=== PATIENT | male | born 1955 | race American Indian/Alaskan Native ===

== ENCOUNTER 2016-06-11 17:54 | Emergency (ER) | payer OTHER ==
--- NOTE | 2016-06-11 18:22 | Emergency Department Report ---
Chief Complaint: Extremity Problem,Nontraumatic Stated Complaint: RT ARM/ SHOULDER PAIN Time Seen by Provider: 06/11/16 18:15 - HPI History of Present Illness: PT c/o R shoulder pain since last night. PT denies any injury or trauma. PT states the pain started when he was going to bed. - ROS Review of Systems: - cp - sob + non traumatic upper ext pain + hx of smoking - Exam Vital Signs: elevated bp Physical Exam: PT looks well, non toxic. PT c/o R shoulder pain, worse with raising R arm. mild tenderness to ant shoulder. no chest wall tenderness MSE screening note: Focused history and physical exam performed. Due to findings the following was ordered: labs, ekg, xr ED Disposition for MSE Condition: Stable
[2016-06-11 19:09] LABS: Basophils % (Auto) 0.3 % (0.0-1.8); Eosinophils % (Auto) 0.4 % (0.0-4.3); Hematocrit 47.7 % (35.5-45.6); Hemoglobin 16.4 gm/dl (11.8-15.2); Mean Corpuscular HGB Conc 34 % (32-34); Mean Corpuscular Hemoglobin 31 pg (28-32); Mean Corpuscular Volume 91 fl (84-94); Platelet Count 147 K/mm3 (140-440); Red Blood Count 5.22 M/mm3 (3.65-5.03); Red Cell Distribution Width 13.3 % (13.2-15.2); White Blood Count 10.1 K/mm3 (4.5-11.0)
[2016-06-11 19:24] LABS: Alanine Aminotransferase 43 units/L (7-56); Albumin 4.4 g/dL (3.9-5); Albumin/Globulin Ratio 1.2 %; Alkaline Phosphatase 64 units/L (35-129); Anion Gap 20 mmol/L; Bilirubin,Total 0.6 mg/dL (0.1-1.2); Blood Urea Nitrogen 12 mg/dL (9-20); Calcium 9.2 mg/dL (8.4-10.2); Carbon Dioxide 25 mmol/L (22-30); Glucose 151 mg/dL (75-100); Potassium 3.7 mmol/L (3.6-5.0); Sodium 138 mmol/L (137-145); Total Protein 8.1 g/dL (6.3-8.2)
--- NOTE | 2016-06-11 20:48 | XRay Report ---
FINAL REPORT PROCEDURE: XR CHEST ROUTINE 2V TECHNIQUE: PA and lateral chest radiographs were obtained. CPT 93976 HISTORY: Hypertension COMPARISON: No prior studies are available for comparison. FINDINGS: Heart: Normal contour. Mediastinum/Vessels: Normal contour. Lungs/Pleural space: No infiltrate, effusion, or pneumothorax is seen. Bony thorax: No acute osseous abnormality. Other: IMPRESSION: No infiltrates are identified.
--- NOTE | 2016-06-11 20:50 | XRay Report ---
FINAL REPORT PROCEDURE: XR SHOULDER 2 RT TECHNIQUE: Right shoulder, three views HISTORY: pain COMPARISON: No prior studies are available for comparison. FINDINGS: There is joint space narrowing and osteophyte formation of the glenohumeral and acromioclavicular joints. No acute fracture or joint dislocation is noted. IMPRESSION: Osteoarthritis. No acute fracture is seen
[2016-06-11] MEDS ORDERED: MORPHINE IM ONE (22:36)
[2016-06-11] MEDS ORDERED: TORADOL IM ONE (22:36)
--- NOTE | 2016-06-11 22:45 | Emergency Department Report ---
HPI - General Chief Complaint: Shoulder Injury Time Seen by Provider: 06/11/16 18:15 - HPI HPI: This is a 61-year-old [place] male presents to the emergency department with complaint of right shoulder pain that has been going on since 6 PM yesterday. The pain is to the anterior and posterior portion of the right shoulder. He denies any injury at. He denies any event which she was reaching for something or had a sharp pain that would have caused his discomfort. The pain worsens when he tries to raise his right arm. He has occasional tingling in a few of the fingers of the right hand. He denies any chest pain, back pain , shortness of breath, nausea, vomiting or fever. He has not taken anything for symptoms prior to presentation. He also presents with some elevated blood pressure and does have a history of hypertension and admits to medication noncompliance. His primary care doctor is Dr. Kearns. No recent travel or sick contacts at home. He is right-hand dominant. ED Past Medical Hx - Past Medical History Previous Medical History?: Yes Hx Hypertension: Yes Hx Congestive Heart Failure: No Hx Diabetes: No Hx Asthma: No Hx COPD: No - Surgical History Past Surgical History?: Yes Additional Surgical History: UMBILICAL HERNIA REPAIR - Social History Smoking Status: Current Every Day Smoker Substance Use Type: Alcohol, Non Opiate Pain, Prescribed - Medications Home Medications: Home Medications Medication Instructions Recorded Confirmed Last Taken Type HYDROcodone/APAP 5-325 [[place] 1 each PO Q6HR PRN #10 tablet 06/11/16 Unknown Rx 5/325] Ibuprofen [Motrin 800 MG tab] 800 mg PO Q8HR PRN #20 tablet 06/11/16 Unknown Rx ED Review of Systems ROS: Stated complaint: RT ARM/ SHOULDER PAIN Other details as noted in HPI Comment: All other systems reviewed and negative Constitutional: denies: chills, fever Eyes: denies: eye pain, eye discharge, vision change ENT: denies: ear pain, throat pain Respiratory: denies: cough, shortness of breath, wheezing Cardiovascular: denies: chest pain, palpitations Gastrointestinal: denies: abdominal pain, nausea, diarrhea Genitourinary: denies: urgency, dysuria Musculoskeletal: arthralgia. denies: joint swelling Skin: denies: rash, lesions Neurological: paresthesias. denies: headache, weakness Physical Exam - Physical Exam Vital Signs: Vital Signs 06/11/16 18:15 Temperature 99.2 F Pulse Rate 103 H Respiratory 20 Rate Blood Pressure 182/120 O2 Sat by Pulse 97 Oximetry Physical Exam: GENERAL: The patient is well-developed well-nourished. HEENT: Normocephalic. Atraumatic. Extraocular motions are intact. Patient has moist mucous membranes. Pupils equal reactive to light bilaterally. NECK: Supple. Trachea is midline. CHEST/LUNGS: Clear to auscultation. There is no respiratory distress noted. HEART/CARDIOVASCULAR: Regular. There is no tachycardia. There is no gallop rub or murmur. ABDOMEN: Abdomen is soft, nontender. Patient has normal bowel sounds. There is no abdominal distention. SKIN: There is no rash. There is no edema. There is no diaphoresis. NEURO: The patient is awake, alert, and oriented. The patient is cooperative. The patient has no focal neurologic deficits. The patient has normal speech and gait. MUSCULOSKELETAL: Patient has tenderness to palpation to the right anterior and posterior shoulder but there is no deformity. Patient has limitation with right upper extremity extension and abduction to active motion but has full range of motion with passive movement. Radial pulses +2 over 4 bilaterally. Cap refill less than 2 seconds. There is no evidence of acute injury. ED Course Vital Signs 06/11/16 18:15 Temperature 99.2 F Pulse Rate 103 H Respiratory 20 Rate Blood Pressure 182/120 O2 Sat by Pulse 97 Oximetry ED Medical Decision Making - Lab Data Result diagrams: 06/11/16 18:48 06/11/16 18:48 - EKG Data -: EKG Interpreted by Me EKG shows normal: sinus rhythm, axis (right axis), intervals, QRS complexes, ST- T waves Rate: normal - EKG Data When compared to previous EKG there are: previous EKG unavailable Interpretation: normal EKG - Radiology Data Radiology results: report reviewed, image reviewed interpreted by me: Chest x-ray did not show any acute process. Heart is normal shape and size. No effusions. No pneumothorax. No signs of pneumonia seen. X-ray of the right shoulder does not show any fracture, dislocation or any acute process. - Medical Decision Making 61-year-old male presents to the emergency department with complaint of a 2 day history of right shoulder pain that occurred atraumatically. It does not involve any portion of the patient's chest. The areas that he is having discomfort are in the shoulder joint and over the muscles and tendons and ligaments that makeup the rotator cuff and the back of the shoulder. No obvious deformities. Patient is neurovascularly intact. Full range of motion with passive movement. Patient's only restriction is due to pain. X-rays of the chest and shoulder were done that did not show any acute processes. Patient will be placed in an arm sling and encouraged to follow-up with an orthopedist. He may need an MRI to look for rotator cuff injury versus tendinitis versus bursitis. No skin color changes or joint swelling. Patient was given a shot of Toradol and pain medication here. He will return to the ER with any worsening of symptoms or any acute distress. Patient presents with elevated blood pressure but has known medication noncompliance. He eventually was able to tell me that he takes metoprolol. He was given a dose of this his blood pressure came down to more reasonable level. He'll be given referrals for primary care and the orthopedist. - Differential Diagnosis tendinitis, shoulder sprain, bursitis, rotator cuff injury, fracture, dislo Critical Care Time: No Critical care attestation.: If time is entered above; I have spent that time in minutes in the direct care of this critically ill patient, excluding procedure time. ED Disposition Clinical Impression: Hypertension Right shoulder pain Qualifiers: Chronicity: acute Qualified Code(s): M25.511 - Pain in right shoulder Disposition: DISCHARGED TO HOME OR SELFCARE Is pt being admited?: No Condition: Stable Instructions: Hypertension (ED), Arthralgia (ED), Shoulder Sprain (ED) Additional Instructions: Please follow-up with a primary care doctor in the next few days to discuss your elevated blood pressure. Try to stay away from foods are high in salt and caffeinated products to help with her blood pressure. Keep a blood pressure log. I have given you a referral for a local orthopedist, Dr. Valadez, to follow up regarding your shoulder pain. You've been prescribed a medication that is sedating. Therefore this medication cannot be mixed with alcohol, or taken prior to driving, working, or being responsible for children. Prescriptions: HYDROcodone/APAP 5-325 [[place] 5/325] 1 each PO Q6HR PRN #10 tablet PRN Reason: Pain Ibuprofen [Motrin 800 MG tab] 800 mg PO Q8HR PRN #20 tablet PRN Reason: Pain Referrals: PRIMARY CARE, [Primary Care Provider] - 3-5 Days TIGRE VALADEZ MD [Staff Physician] - 3-5 Days JAMSHID LERMA MD, PHD [Staff Physician] - 3-5 Days Time of Disposition: 23:44
[2016-06-11] MEDS ORDERED: LOPRESSOR PO ONE (23:39)
[2016-06-12 01:00] VITALS: BP 169/115
== END 2016-06-12 00:58 | disposition home or self-care (01) ==
LOC: ED 17:54
DX: I10 Essential (primary) hypertension (principal); M25.511 Pain in right shoulder
CPT/HCPCS: 36415; 71020; 73030; 80053; 84484; 85025; 93005; 93010; 96372; 99284; J1885; J2270

== ENCOUNTER 2017-03-31 23:32 | Emergency (ER) | payer SELFPAY | END 2017-04-01 00:30 | disposition left against medical advice (07) | LOC: ED 23:32 | DX: R51 Headache (principal); Z53.21 Procedure and treatment not carried out due to patient leaving prior to being seen by health care provider ==

== ENCOUNTER 2017-05-15 08:27 | Inpatient (IN) | payer SELFPAY ==
--- NOTE | 2017-05-15 13:26 | Emergency Department Report ---
HPI - General Chief Complaint: Weakness Time Seen by Provider: 05/15/17 13:12 - HPI HPI: Room 2 The patient is a 8-year-old male presented with a chief complaint of right hand weakness and slurred speech. The patient was brought in by his she has noticed he has been off balance, exhibited right-sided weakness and slurred speech. The states the patient attempts to hide the symptoms from her but she has noticed he has been holding his right hand for the past 2-3 weeks. The states the patient's right face appears twisted for approximately one week. The is noticed slurred speech but is unable to give a time frame. states the patient seems off balance. When asked how his feeling the patient replies he feels "all right." The patient does admit to numbness and weakness of the right hand for approximately 1 year. The states the patient uses cocaine but she is unaware of the last time he used Location: [See above] Duration: [See above] Quality: Weakness, numbness Severity: Moderate Modifying factors: [see above] Context: [see above] Mode of transportation: [not driving] ED Past Medical Hx - Past Medical History Hx Hypertension: Yes - Surgical History Additional Surgical History: UMBILICAL HERNIA REPAIR - Family History Family history: no significant - Social History Smoking Status: Current Every Day Smoker (1/2 pack per day) Substance Use Type: Alcohol ("often" per ), Cocaine - Medications Home Medications: Home Medications Medication Instructions Recorded Confirmed Last Taken Type HYDROcodone/APAP 5-325 [[place] 1 each PO Q6HR PRN #10 tablet 06/11/16 05/15/17 Unknown Rx 5/325] Ibuprofen [Motrin 800 MG tab] 800 mg PO Q8HR PRN #20 tablet 06/11/16 05/15/17 Unknown Rx Metoprolol [Lopressor TAB] 25 mg PO BID #60 tablet 06/12/16 05/15/17 Unknown Rx ED Review of Systems ROS: Stated complaint: NEURO SYMPTOMS Other details as noted in HPI Neurological: weakness, numbness Physical Exam - Physical Exam Vital Signs: Vital Signs 05/15/17 08:54 Temperature 98.1 F Pulse Rate 68 Respiratory 16 Rate Blood Pressure 151/98 O2 Sat by Pulse 97 Oximetry Physical Exam: GENERAL: The patient is well-developed well-nourished male lying on stretcher not appearing to be in acute distress. [] HEENT: Normocephalic. Atraumatic. Extraocular motions are intact. Patient has moist mucous membranes. NECK: Supple. Trachea midline CHEST/LUNGS: Clear to auscultation. There is no respiratory distress noted. HEART/CARDIOVASCULAR: Regular. There is no tachycardia. There is no gallop rub or murmur. ABDOMEN: Abdomen is soft, nontender. Patient has normal bowel sounds. There is no abdominal distention. SKIN: There is no rash. There is no edema. There is no diaphoresis. NEURO: The patient is awake, alert, and oriented. The patient is cooperative. Cranial nerves II through XII grossly intact, no drift. states patient appears to have slight right facial droop compared to baseline. Manager Membership equal bilaterally. The patient has normal speech. NIHSS=1 MUSCULOSKELETAL: There is no evidence of acute injury. ED Course Vital Signs 05/15/17 08:54 Temperature 98.1 F Pulse Rate 68 Respiratory 16 Rate Blood Pressure 151/98 O2 Sat by Pulse 97 Oximetry ED Medical Decision Making - Lab Data Result diagrams: 05/15/17 13:22 05/15/17 13:22 Laboratory Tests 05/15/17 05/15/17 05/15/17 13:22 13:22 13:22 WBC 7.7 RBC 4.47 Hgb 14.0 Hct 40.4 MCV 90 MCH 31 MCHC 35 H RDW 14.0 Plt Count 166 Lymph % (Auto) 46.2 H Rains % (Auto) 5.4 Eos % (Auto) 3.7 Baso % (Auto) 0.3 Lymph # 3.6 Rains # 0.4 Eos # 0.3 Baso # 0.0 Seg Neutrophils % 44.4 Seg Neutrophils # 3.4 PT 12.7 INR 0.91 APTT 29.5 Thrombin Time Sodium 142 Potassium 3.5 L Chloride 101.9 Carbon Dioxide 26 Anion Gap 18 BUN 20 Creatinine 1.3 Estimated GFR > 60 BUN/Creatinine Ratio 15 Glucose 149 H Calcium 8.7 Troponin T < 0.010 05/15/17 13:22 WBC RBC Hgb Hct MCV MCH MCHC RDW Plt Count Lymph % (Auto) Rains % (Auto) Eos % (Auto) Baso % (Auto) Lymph # Rains # Eos # Baso # Seg Neutrophils % Seg Neutrophils # PT INR APTT Thrombin Time 15.9 Sodium Potassium Chloride Carbon Dioxide Anion Gap BUN Creatinine Estimated GFR BUN/Creatinine Ratio Glucose Calcium Troponin T - EKG Data -: EKG Interpreted by Me EKG shows normal: sinus rhythm Rate: normal - EKG Data When compared to previous EKG there are: changes noted Interpretation: nonspecific ST-T wave chirag (new T-wave inversions in leads 1 and aVL when compared to previous EKG dated 06/11/2016) - Radiology Data Radiology results: report reviewed (CT head), image reviewed (CT head) CT HEAD WITHOUT CONTRAST: HISTORY: Neurological deficit. TECHNIQUE: Sequential 2.5mm CT images. COMPARISON: none. FINDINGS: Cerebral Parenchyma: Mild nonspecific chronic white matter changes are identified most likely representing chronic microvascular ischemic disease. Chronic lacunar infarcts are identified in the left frontal white matter, bilateral basal ganglia, and central chip. No large area of acute ischemia is appreciated on noncontrast CT. Cerebellum: Within normal limits. Brainstem: Within normal limits. Ventricles: Normal. Sella: Normal. Extra-axial spaces: Normal. Basal Cisterns: Normal. Intracranial Hemorrhage: None. Midline Shift: None. Calvarium: Normal. Sinuses: Normal. Mastoid Air Cells: Normal. Visualized Orbits: A surgical coil or clip in the posterior left orbital cavity generates artifact. Please correlate with the patient's surgical history. IMPRESSION: No acute intracranial process is identified. Chronic white matter changes. Scattered chronic appearing lacunar infarcts as described. Assumed surgical changes in the left orbital cavity. Transcribed By: TTR Dictated By: JHOAN DIALLO JR, MD Electronically Authenticated By: JHOAN DIALLO JR, MD Signed Date/Time: 05/15/17 1407 DD/ 1405 TD/TT: 05/15/17 1407 - Differential Diagnosis CVA, TIA, Critical care attestation.: If time is entered above; I have spent that time in minutes in the direct care of this critically ill patient, excluding procedure time. ED Disposition Clinical Impression: Paresthesia of right arm, Right arm weakness, Dysarthria Disposition: OP ADMIT IP TO THIS HOSP Is pt being admited?: Yes Does the pt Need Aspirin: Yes Condition: Fair Referrals: PRIMARY CARE, [Primary Care Provider] - 3-5 Days Time of Disposition: 14:21 (hospitalist notified (Dr Emerson))
[2017-05-15 13:38] LABS: Basophils % (Auto) 0.3 % (0.0-1.8); Eosinophils # (Auto) 0.3 K/mm3 (0.0-0.4); Eosinophils % (Auto) 3.7 % (0.0-4.3); Hematocrit 40.4 % (35.5-45.6); Lymphocytes # (Auto) 3.6 K/mm3 (1.2-5.4); Lymphocytes % (Auto) 46.2 % (13.4-35.0); Mean Corpuscular HGB Conc 35 % (32-34); Mean Corpuscular Hemoglobin 31 pg (28-32); Mean Corpuscular Volume 90 fl (84-94); Monocytes # (Auto) 0.4 K/mm3 (0.0-0.8); Monocytes % (Auto) 5.4 % (0.0-7.3); Platelet Count 166 K/mm3 (140-440); Red Blood Count 4.47 M/mm3 (3.65-5.03)
[2017-05-15 13:55] LABS: INR 0.91 (0.87-1.13); Partial Thromboplastin Time 29.5 Sec. (24.2-36.6)
[2017-05-15 13:57] LABS: BUN/Creatinine Ratio 15; Blood Urea Nitrogen 20 mg/dL (9-20); Calcium 8.7 mg/dL (8.4-10.2); Hemolysis Index 7
--- NOTE | 2017-05-15 14:14 | Cat Scan Report ---
CT HEAD WITHOUT CONTRAST: HISTORY: Neurological deficit. TECHNIQUE: Sequential 2.5mm CT images. COMPARISON: none. FINDINGS: Cerebral Parenchyma: Mild nonspecific chronic white matter changes are identified most likely representing chronic microvascular ischemic disease. Chronic lacunar infarcts are identified in the left frontal white matter, bilateral basal ganglia, and central chip. No large area of acute ischemia is appreciated on noncontrast CT. Cerebellum: Within normal limits. Brainstem: Within normal limits. Ventricles: Normal. Sella: Normal. Extra-axial spaces: Normal. Basal Cisterns: Normal. Intracranial Hemorrhage: None. Midline Shift: None. Calvarium: Normal. Sinuses: Normal. Mastoid Air Cells: Normal. Visualized Orbits: A surgical coil or clip in the posterior left orbital cavity generates artifact. Please correlate with the patient's surgical history. IMPRESSION: No acute intracranial process is identified. Chronic white matter changes. Scattered chronic appearing lacunar infarcts as described. Assumed surgical changes in the left orbital cavity.
[2017-05-15] MEDS ORDERED: ASPIRIN PO ONE (14:21)
[2017-05-15 16:47] LABS: Amphetamine Screen,Urine PRESUMPTIVE NEGATIVE; Benzodiazepines Screen,Urine PRESUMPTIVE NEGATIVE; Cannabinoid Screen,Urine PRESUMPTIVE NEGATIVE; Cocaine Screen,Urine PRESUMPTIVE NEGATIVE; Methadone Screen,Urine PRESUMPTIVE NEGATIVE; Opiate Screen,Urine PRESUMPTIVE NEGATIVE
--- NOTE | 2017-05-15 21:00 | History and Physical Report ---
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 History of present illness: GARETT: 62-year-old male presented with a chief complaint of right hand weakness and slurred speech. The patient was brought in by his because she noticed he has been off balance, exhibited right-sided weakness and slurred speech. The states the patient attempts to hide the symptoms from her but she has noticed he has been holding his right hand for the past 2-3 weeks. The states the patient's right face appears twisted for approximately one week. also noticed slurred speech but is unable to give a time frame. states the patient seems off balance. When asked how he his feeling the patient replies he feels "all right." The patient does admit to numbness and weakness of the right hand for approximately 1 year. The states the patient uses cocaine but she is unaware of the last time he used. Past Medical History Hx Hypertension: Yes - Surgical History Additional Surgical History: UMBILICAL HERNIA REPAIR - Family History Family history: no significant - Social History Smoking Status: Current Every Day Smoker (1/2 pack per day) Substance Use Type: Alcohol ("often" per ), Cocaine - Medications Home Medications: Home Medications Medication Instructions Recorded Confirmed Last Taken Type HYDROcodone/APAP 5-325 [[place] 1 each PO Q6HR PRN #10 tablet 06/11/16 05/15/17 Unknown Rx 5/325] Ibuprofen [Motrin 800 MG tab] 800 mg PO Q8HR PRN #20 tablet 06/11/16 05/15/17 Unknown Rx Metoprolol [Lopressor TAB] 25 mg PO BID #60 tablet 06/12/16 05/15/17 Unknown Rx Medications and Allergies Allergies Allergy/AdvReac Type Severity Reaction Status Date / Time No Known Allergies Allergy Verified 05/15/17 08:54 Home Medications Medication Instructions Recorded Confirmed Last Taken Type HYDROcodone/APAP 5-325 [[place] 1 each PO Q6HR PRN #10 tablet 06/11/16 05/15/17 Unknown Rx 5/325] Ibuprofen [Motrin 800 MG tab] 800 mg PO Q8HR PRN #20 tablet 06/11/16 05/15/17 Unknown Rx Metoprolol [Lopressor TAB] 25 mg PO BID #60 tablet 06/12/16 05/15/17 Unknown Rx Review of Systems All systems: negative Constitutional: no weight loss, no weight gain, no fever, no chills, no sweats, no night sweats Ears, nose, mouth and throat: other (slurred speech), no sore throat, no swelling in mouth, no swelling in throat, no odynophagia, no voice changes, no post-nasal drip, no headache Cardiovascular: no chest pain, no orthopnea, no palpitations, no rapid/ irregular heart beat, no edema, no syncope, no lightheadedness Respiratory: no cough, no cough with sputum, no excessive sputum, no hemoptysis , no shortness of breath, no dyspnea on exertion Gastrointestinal: no abdominal pain, no nausea, no vomiting, no diarrhea, no constipation, no change in bowel habits, no hematemesis, no coffee ground emesis Genitourinary Male: no dysuria, no hematuria, no flank pain, no discharge, no urinary frequency, no urinary hesitancy, no nocturia Rectal: no pain Musculoskeletal: no neck stiffness, no neck pain, no shooting arm pain, no arm numbness/tingling, no low back pain, no shooting leg pain, no leg numbness/ tingling, no redness of joints Integumentary: no rash, no pruritis, no redness, no sores, no wounds, no jaundice, no boils, no blisters Neurological: weakness (right-sided upper extremity weakness and slurred speech) , change in speech, no head injury, no transient paralysis, no seizures, no syncope Psychiatric: no anxiety, no memory loss, no sleep disturbances, no insomnia, no hypersomnia Endocrine: no cold intolerance, no heat intolerance, no polyphagia, no excessive thirst, no polydipsia, no polyuria Hematologic/Lymphatic: no easy bruising, no easy bleeding Allergic/Immunologic: no urticaria, no allergic rhinitis, no wheezing Exam - Constitutional Vitals: Temp Pulse Resp BP Pulse Ox 98.1 F 74 16 131/85 94 05/15/17 08:54 05/15/17 16:15 05/15/17 16:15 05/15/17 20:00 05/15/17 20:00 General appearance: Present: no acute distress, well-nourished - EENT Eyes: Present: PERRL ENT: hearing intact, clear oral mucosa - Neck Neck: Present: supple, normal ROM - Respiratory Respiratory effort: normal Respiratory: bilateral: CTA - Cardiovascular Heart rate: 80 Rhythm: regular Heart Sounds: Present: S1 & S2. Absent: rub, click - Extremities Extremities: no ischemia, pulses intact, pulses symmetrical, No edema Peripheral Pulses: within normal limits - Abdominal General gastrointestinal: Present: soft, non-tender, non-distended, normal bowel sounds Male genitourinary: Present: normal - Rectal Rectal Exam: deferred - Integumentary Integumentary: Present: clear, warm, dry - Musculoskeletal Musculoskeletal: right sided weakness (right upper extremity weakness 4/5), other (right facial droop. Slight slurred speech) - Psychiatric Psychiatric: appropriate mood/affect, intact judgment & insight - Neurologic Neurologic: CNII-XII intact, moves all extremities, other (right facial droop) - Allied Health Allied health notes reviewed: nursing, case management Results - Labs CBC & Chem 7: 05/15/17 13:22 05/15/17 13:22 Labs: Laboratory Last Values WBC 7.7 K/mm3 (4.5-11.0) 05/15/17 13:22 RBC 4.47 M/mm3 (3.65-5.03) 05/15/17 13:22 Hgb 14.0 gm/dl (11.8-15.2) 05/15/17 13:22 Hct 40.4 % (35.5-45.6) 05/15/17 13:22 MCV 90 fl (84-94) 05/15/17 13:22 MCH 31 pg (28-32) 05/15/17 13:22 MCHC 35 % (32-34) H 05/15/17 13:22 RDW 14.0 % (13.2-15.2) 05/15/17 13:22 Plt Count 166 K/mm3 (140-440) 05/15/17 13:22 Lymph % (Auto) 46.2 % (13.4-35.0) H 05/15/17 13:22 [place] % (Auto) 5.4 % (0.0-7.3) 05/15/17 13:22 Eos % (Auto) 3.7 % (0.0-4.3) 05/15/17 13:22 Baso % (Auto) 0.3 % (0.0-1.8) 05/15/17 13:22 Lymph # 3.6 K/mm3 (1.2-5.4) 05/15/17 13:22 [place] # 0.4 K/mm3 (0.0-0.8) 05/15/17 13:22 Eos # 0.3 K/mm3 (0.0-0.4) 05/15/17 13:22 Baso # 0.0 K/mm3 (0.0-0.1) 05/15/17 13:22 Seg Neutrophils % 44.4 % (40.0-70.0) 05/15/17 13:22 Seg Neutrophils # 3.4 K/mm3 (1.8-7.7) 05/15/17 13:22 PT 12.7 Sec. (12.2-14.9) 05/15/17 13:22 INR 0.91 (0.87-1.13) 05/15/17 13:22 APTT 29.5 Sec. (24.2-36.6) 05/15/17 13:22 Thrombin Time 15.9 Sec. (15.1-19.6) 05/15/17 13:22 Sodium 142 mmol/L (137-145) 05/15/17 13:22 Potassium 3.5 mmol/L (3.6-5.0) L 05/15/17 13:22 Chloride 101.9 mmol/L (98-107) 05/15/17 13:22 Carbon Dioxide 26 mmol/L (22-30) 05/15/17 13:22 Anion Gap 18 mmol/L 05/15/17 13:22 BUN 20 mg/dL (9-20) 05/15/17 13:22 Creatinine 1.3 mg/dL (0.8-1.5) 05/15/17 13:22 Estimated GFR > 60 ml/min 05/15/17 13:22 BUN/Creatinine Ratio 15 % 05/15/17 13:22 Glucose 149 mg/dL (75-100) H 05/15/17 13:22 Calcium 8.7 mg/dL (8.4-10.2) 05/15/17 13:22 Troponin T < 0.010 ng/mL (0.00-0.029) 05/15/17 13:22 Urine Opiates Screen Presumptive negative 05/15/17 16:15 Urine Methadone Screen Presumptive negative 05/15/17 16:15 Ur Barbiturates Screen Presumptive negative 05/15/17 16:15 Ur Phencyclidine Scrn Presumptive negative 05/15/17 16:15 Ur Amphetamines Screen Presumptive negative 05/15/17 16:15 U Benzodiazepines Scrn Presumptive negative 05/15/17 16:15 Urine Cocaine Screen Presumptive negative 05/15/17 16:15 U Marijuana (THC) Screen Presumptive negative 05/15/17 16:15 Drugs of Abuse Note Disclamer 05/15/17 16:15 Short CBC 05/15/17 Range/Units 13:22 WBC 7.7 (4.5-11.0) K/mm3 Hgb 14.0 (11.8-15.2) gm/dl Hct 40.4 (35.5-45.6) % Plt Count 166 (140-440) K/mm3 BMP 05/15/17 13:22 Sodium 142 Potassium 3.5 L Chloride 101.9 Carbon Dioxide 26 BUN 20 Creatinine 1.3 Glucose 149 H Calcium 8.7 Cardiac Enzymes 05/15/17 Range/Units 13:22 Troponin T < 0.010 (0.00-0.029) ng/mL - Imaging and Cardiology EKG: report reviewed (sinus rhythm sinus rhythm 66 per minute T wave inversions in lead 1 abnormal T waves in lateral leads consider ischemia) CT Scan - head: report reviewed (no acute process) Assessment and Plan Advance Directives: Yes (full code) VTE prophylaxis?: Chemical Plan of care discussed with patient/family: Yes - Patient Problems (1) Acute CVA (cerebrovascular accident) Current Visit: Yes Status: Acute Plan to address problem: CVA work up MRI/MRA/CDS/ECHO Neuro consult PT/OT Plavix (2) HTN (hypertension) Current Visit: Yes Status: Chronic Qualifiers: Hypertension type: essential hypertension Qualified Code(s): I10 - Essential (primary) hypertension Plan to address problem: Add [id number] mg po qd (3) Nicotine dependence Current Visit: Yes Status: Chronic Qualifiers: Nicotine product type: cigarettes Plan to address problem: Nicoderm patch (4) Cocaine abuse Current Visit: Yes Status: Chronic Plan to address problem: Chronic (5) DVT prophylaxis Current Visit: No Status: Acute Plan to address problem: On Lovenox
[2017-05-15] MEDS ORDERED: MOTRIN PO PRN (21:01)
[2017-05-15] MEDS ORDERED: MILK OF MAGNESIA PO PRN (21:02)
[2017-05-15] MEDS ORDERED: DULCOLAX PR PRN (21:02)
[2017-05-15] MEDS ORDERED: TYLENOL PO PRN (21:02)
[2017-05-15] MEDS ORDERED: ZOFRAN IV PRN (21:02)
[2017-05-15] MEDS ORDERED: SODIUM CHLORIDE FLUSH SYRINGE 10 ML IV PRN (21:12)
[2017-05-15] MEDS ORDERED: APRESOLINE IV PRN (21:12)
[2017-05-15] MEDS ORDERED: MORPHINE IV PRN (21:15)
[2017-05-15] MEDS ORDERED: NOVOLOG SUB-Q ONE (21:16)
[2017-05-15] MEDS: LOPRESSOR PO SCH (21:50)
[2017-05-15] MEDS ORDERED: K-DUR PO ONE (21:51)
[2017-05-15] MEDS ORDERED: LOPRESSOR ONE (21:55)
[2017-05-15] MEDS ORDERED: D5NS 1,000 ML IV SCH (22:00)
[2017-05-15] MEDS: COZAAR PO SCH (22:11)
[2017-05-16 04:29] LABS: Basophils % (Auto) 0.5 % (0.0-1.8); Eosinophils # (Auto) 0.3 K/mm3 (0.0-0.4); Eosinophils % (Auto) 4.7 % (0.0-4.3); Hematocrit 40.8 % (35.5-45.6); Lymphocytes # (Auto) 3.2 K/mm3 (1.2-5.4); Lymphocytes % (Auto) 49.7 % (13.4-35.0); Mean Corpuscular HGB Conc 34 % (32-34); Mean Corpuscular Hemoglobin 31 pg (28-32); Mean Corpuscular Volume 91 fl (84-94); Monocytes # (Auto) 0.5 K/mm3 (0.0-0.8); Monocytes % (Auto) 8.6 % (0.0-7.3); Platelet Count 163 K/mm3 (140-440); Red Blood Count 4.49 M/mm3 (3.65-5.03); Red Cell Distribution Width 14.2 % (13.2-15.2)
[2017-05-16 04:57] LABS: BUN/Creatinine Ratio 14; Blood Urea Nitrogen 15 mg/dL (9-20); Calcium 8.8 mg/dL (8.4-10.2); Hemolysis Index 11
[2017-05-16 05:11] LABS: Chol/HDL Ratio 5.12 %; HDL Cholesterol 33 mg/dL (40-59); LDL Cholesterol,Direct 116 mg/dL (50-130)
--- NOTE | 2017-05-16 09:06 | Progress Note ---
Assessment and Plan (1) Acute CVA (cerebrovascular accident) Current Visit: Yes Status: Acute Plan to address problem: F/U with MRI/MRA/CDS/ECHO Neuro consult PT/OT Plavix (2) HTN (hypertension)optimized Current Visit: Yes Status: Chronic Qualifiers: Hypertension type: essential hypertension Qualified Code(s): I10 - Essential (primary) hypertension Plan to address problem: Add [id number] mg po qd (3) Nicotine dependence Current Visit: Yes Status: Chronic Qualifiers: Nicotine product type: cigarettes Plan to address problem: Counselling on cessation Nicoderm patch (4) Cocaine abuse Current Visit: Yes Status: Chronic Plan to address problem: Counselling on cessation Chronic (5) DVT prophylaxis Current Visit: No Status: Acute Plan to address problem: On Lovenox Subjective Date of service: 05/16/17 Principal diagnosis: Acute CVA, HTN Interval history: Pt seen and examined. No new complaint. No over night event reported to me. Discussed with pt nurse Objective - Constitutional Vitals: Vital Signs - 12hr 05/15/17 05/15/17 05/15/17 21:15 21:31 21:45 Temperature Pulse Rate Respiratory Rate Blood Pressure 143/94 149/84 162/93 Blood Pressure [Left] O2 Sat by Pulse 96 95 94 Oximetry 05/15/17 05/15/17 05/15/17 21:50 22:00 22:11 Temperature Pulse Rate 76 82 Respiratory Rate Blood Pressure 162/94 139/89 186/92 Blood Pressure [Left] O2 Sat by Pulse 95 Oximetry 05/16/17 05/16/17 05/16/17 00:20 01:27 04:54 Temperature 98.2 F 97.6 F Pulse Rate 47 L 47 L 52 L Respiratory 18 18 Rate Blood Pressure Blood Pressure 144/89 139/82 [Left] O2 Sat by Pulse 98 98 Oximetry 05/16/17 08:59 Temperature 97.7 F Pulse Rate 79 Respiratory 20 Rate Blood Pressure Blood Pressure 148/86 [Left] O2 Sat by Pulse 96 Oximetry General appearance: Present: no acute distress, well-nourished - EENT Eyes: PERRL, EOM intact - Neck Neck: supple, normal ROM - Respiratory Respiratory effort: normal Respiratory: bilateral: diminished - Cardiovascular Rhythm: regular Heart Sounds: Present: S1 & S2. Absent: gallop, rub Extremities: pulses intact, No edema, Full ROM - Gastrointestinal General gastrointestinal: Present: soft, non-tender - Integumentary Integumentary: clear, warm, dry - Musculoskeletal Musculoskeletal: strength equal bilaterally - Psychiatric Psychiatric: memory intact, appropriate mood/affect, intact judgment & insight - Labs CBC & Chem 7: 05/16/17 04:05 05/16/17 04:05 Labs: Abnormal lab results 05/15/17 05/15/17 05/15/17 Range/Units 13:22 13:22 21:28 MCHC 35 H (32-34) % Lymph % (Auto) 46.2 H (13.4-35.0) % [place] % (Auto) (0.0-7.3) % Eos % (Auto) (0.0-4.3) % Seg Neutrophils % (40.0-70.0) % Potassium 3.5 L (3.6-5.0) mmol/L Glucose 149 H (75-100) mg/dL POC Glucose (70-105) Hemoglobin A1c 6.3 H (4-6) % HDL Cholesterol (40-59) mg/dL 05/15/17 05/16/17 05/16/17 Range/Units 21:51 04:05 04:05 MCHC (32-34) % Lymph % (Auto) 49.7 H (13.4-35.0) % [place] % (Auto) 8.6 H (0.0-7.3) % Eos % (Auto) 4.7 H (0.0-4.3) % Seg Neutrophils % 36.5 L (40.0-70.0) % Potassium (3.6-5.0) mmol/L Glucose 107 H (75-100) mg/dL POC Glucose 131 H (70-105) Hemoglobin A1c (4-6) % HDL Cholesterol 33 L (40-59) mg/dL
[2017-05-16] MEDS: COZAAR PO SCH (09:56)
[2017-05-16] MEDS: PLAVIX PO SCH (09:57)
[2017-05-16] MEDS: LOVENOX SUB-Q SCH (09:57)
[2017-05-16] MEDS: HABITROL TD SCH (09:57)
[2017-05-16] MEDS: LOPRESSOR PO SCH ×2 (09:57→21:49)
--- NOTE | 2017-05-16 13:20 | Magnetic Resonance Report ---
MRI scan of brain: History: Stroke. Technique: Multiplanar multisequence images were obtained without contrast injection. Findings: There is 2 to 3 mm focal area of restricted diffusion noted involving the left posterior parietal region, left periventricular white matter, left basal ganglia, left temporal lobe and chip and midbrain. Also noted at the right cerebellum posteriorly and medially. No evidence of hemorrhage. No extra-axial fluid collection. Periventricular areas of hyperintensity noted without corresponding restricted diffusion. Normal sinuses. Impression: Multiple areas of restricted diffusion as detailed above suggestive of ischemic stroke probably from emboli. No evidence of hemorrhage. Small vessel scheming changes
--- NOTE | 2017-05-16 13:22 | Magnetic Resonance Report ---
MRA of the brain: History: Stroke. Findings: The vessels of [place] widely patent. No evidence of aneurysm, thrombosis, occlusion or dissection. Codominant vertebral arteries with normal basilar artery. origin of right posterior cerebral artery. Impression: Essentially negative MRA of brain.
--- NOTE | 2017-05-16 18:42 | Consultation ---
History of Present Illness Consult date: 05/16/17 History of present illness: I have dictated a full note on this patient and gone over tyhe MRI and MRA the ECHO reviewed and see no evidence of source of emboli await the CT u/s exam shows mostly memory loss and aphasia explained dx to family and showed them the imaging studies medical management rec'ed Medications and Allergies Allergies Allergy/AdvReac Type Severity Reaction Status Date / Time No Known Allergies Allergy Verified 05/15/17 08:54 Home Medications Medication Instructions Recorded Confirmed Last Taken Type HYDROcodone/APAP 5-325 [[place] 1 each PO Q6HR PRN #10 tablet 06/11/16 05/15/17 Unknown Rx 5/325] Ibuprofen [Motrin 800 MG tab] 800 mg PO Q8HR PRN #20 tablet 06/11/16 05/15/17 Unknown Rx Metoprolol [Lopressor TAB] 25 mg PO BID #60 tablet 06/12/16 05/15/17 Unknown Rx Active Meds: Active Medications Acetaminophen (Tylenol) 650 mg PO Q4H PRN PRN Reason: Pain MILD(1-3)/Fever >100.5/SEBASTIAN Bisacodyl (Dulcolax) 10 mg GA QDAY PRN PRN Reason: Constipation unrelieved by MOM Clopidogrel Bisulfate (Plavix) 75 mg PO QDAY [facility] Last Admin: 05/16/17 09:57 Dose: 75 mg Enoxaparin Sodium (Lovenox) 40 mg SUB-Q QDAY [facility] Last Admin: 05/16/17 09:57 Dose: 40 mg Hydralazine HCl (Apresoline) 10 mg IV Q3H PRN PRN Reason: Keep SBP between 160-185 mm Hg Dextrose/Sodium Chloride (D5ns) 1,000 mls @ 75 mls/hr IV DIRECT [facility] Ibuprofen (Motrin) 800 mg PO Q8HR PRN PRN Reason: Pain Losartan Potassium (Cozaar) 100 mg PO QDAY [facility] Last Admin: 05/16/17 09:56 Dose: 100 mg Magnesium Hydroxide (Milk Of Magnesia) 30 ml PO Q4H PRN PRN Reason: Constipation Metoprolol Tartrate (Lopressor) 25 mg PO BID [facility] Last Admin: 05/16/17 09:57 Dose: 25 mg Morphine Sulfate (Morphine) 2 mg IV Q4H PRN PRN Reason: Pain, Moderate (4-6) Nicotine (Habitrol) 21 mg TD QDAY JOHN Last Admin: 05/16/17 09:57 Dose: 21 mg Ondansetron HCl (Zofran) 4 mg IV Q8H PRN PRN Reason: N/V unrelieved by [place] Sodium Chloride (Sodium Chloride Flush Syringe 10 Ml) 10 ml IV PRN PRN PRN Reason: LINE FLUSH Physical Examination - Vital Signs Vital Signs: Vital Signs Temp Pulse Resp BP Pulse Ox 98.1 F 68 16 151/98 97 05/15/17 08:54 05/15/17 08:54 05/15/17 08:54 05/15/17 08:54 05/15/17 08:54 Results - Laboratory Findings CBC and BMP: 05/16/17 04:05 05/16/17 04:05 Abnormal Lab Findings: Abnormal Labs 05/15/17 05/15/17 05/15/17 13:22 13:22 21:28 MCHC 35 H Lymph % (Auto) 46.2 H [place] % (Auto) Eos % (Auto) Seg Neutrophils % Potassium 3.5 L Glucose 149 H POC Glucose Hemoglobin A1c 6.3 H HDL Cholesterol 05/15/17 05/16/17 05/16/17 21:51 04:05 04:05 MCHC Lymph % (Auto) 49.7 H [place] % (Auto) 8.6 H Eos % (Auto) 4.7 H Seg Neutrophils % 36.5 L Potassium Glucose 107 H POC Glucose 131 H Hemoglobin A1c HDL Cholesterol 33 L
[2017-05-17] MEDS: LOPRESSOR PO SCH ×2 (09:36→22:23)
[2017-05-17] MEDS: LOVENOX SUB-Q SCH (09:36)
[2017-05-17] MEDS: COZAAR PO SCH (09:37)
[2017-05-17] MEDS: PLAVIX PO SCH (09:37)
[2017-05-17] MEDS: HABITROL TD SCH (09:38)
--- NOTE | 2017-05-17 10:08 | Consultation ---
LOCATION: Room No. 456 HISTORY OF PRESENT ILLNESS: This is a 62-year-old black male that presents with 2-3 week history of confusion, memory loss, not acting like himself. He previous to this had been very active, worked up frequently, was known to be a diabetic and hypertensive, but he stopped taking medication. Family members present in the room provided much of the history. They stated he was not acting like himself, not remembering, not responding. He has no prior history of strokes. There were no prior history of head trauma. ALLERGIES: The patient has no known allergies. SOCIAL HISTORY: He does smoke moderate amount. Denies alcohol use. PHYSICAL EXAMINATION: VITAL SIGNS: His blood pressure is 148/86, pulse rate is 79, respirations 18, temperature is 97.7. HEENT: Ocular movements are full. Speech is limited. NEUROLOGIC: He is very withdrawn, not at all talkative, responds to simple questions only. He does not elaborate in his conversations. Under [place] strength is equal. Motor tone is symmetrical. Neck is supple. No tremors or asterixis are present. Visual carson, he has a right visual field cut. IMPRESSION: I reviewed over his MRI scan of the brain. Interestingly, it shows several small punctate strokes which were all acute. One old stroke in the left hemisphere deep white matter. This is chronic. The new strokes are in the left cerebral peduncle, the left temporal region of the deep white matter and left posterior parietal area in the cortex. Altogether these strokes, I count 3, they are all the same age. I do not see on the MRA scan any arterial occlusion. Obviously, he is a diabetic, a smoker, age and a male, he has multiple risk factors. I would recommend risk factor reduction, use of a statin, although his cholesterol is not elevated. Use of aspirin, blood pressure control. Await the results of carotid artery ultrasound. I did review his echocardiogram. I do not see any source of embolization, although the radiologist reports the question could this be embolization. I would actually favor more small vessel disease due to hypertension. I do not think the distribution is typical for that of emboli, but nonetheless this should be considered and I do not see that he has evidence of a coagulopathy. His PT, PTT are within normal limits. RECOMMENDATION: Family counseling. I spent time speaking with the family. Medication adjustments as above. Physical therapy, speech therapy followup. JOB# [id number] JOSHUA/NTS
--- NOTE | 2017-05-17 11:53 | Progress Note ---
Assessment and Plan (1) Acute CVA (cerebrovascular accident) Current Visit: Yes Status: Acute Plan to address problem: MRI SHOWED EVIDENCE OF ACUTE EMBOLIC STROKE INVOLVING THE LEFT PARIETAL AREA AND RIGHT CEREBELLUM MRA/CDS/ECHO Neuro consulted PT/OT ASA, plavix and statin (2) HTN (hypertension)optimized Current Visit: Yes Status: Chronic Qualifiers: Hypertension type: essential hypertension Qualified Code(s): I10 - Essential (primary) hypertension Plan to address problem: On [id number] mg po qd continue to monitor (3) Nicotine dependence Current Visit: Yes Status: Chronic Qualifiers: Nicotine product type: cigarettes Plan to address problem: Counselling on cessation Nicoderm patch (4) Cocaine abuse Current Visit: Yes Status: Chronic Plan to address problem: Counselling on cessation Chronic (5) DVT prophylaxis Current Visit: No Status: Acute Plan to address problem: On Lovenox Subjective Date of service: 05/17/17 Principal diagnosis: Acute CVA, HTN Interval history: Pt seen and examined. No new complaint. No over night event reported to me. Discussed with pt nurse as well as family in [place] room Objective - Constitutional Vitals: Vital Signs - 12hr 05/17/17 05/17/17 05/17/17 00:31 05:18 10:52 Temperature 98.3 F 98.5 F Pulse Rate 59 L 64 Respiratory 18 18 Rate Blood Pressure 156/100 144/91 O2 Sat by Pulse 92 94 99 Oximetry General appearance: Present: no acute distress, well-nourished, other ( abulating on the [place]) - EENT Eyes: PERRL, EOM intact - Neck Neck: supple, normal ROM - Respiratory Respiratory effort: normal Respiratory: bilateral: CTA - Cardiovascular Rhythm: regular Heart Sounds: Present: S1 & S2. Absent: gallop, rub Extremities: pulses intact, No edema, normal color, Full ROM - Gastrointestinal General gastrointestinal: Present: soft, non-tender, non-distended - Integumentary Integumentary: clear, warm, dry - Musculoskeletal Musculoskeletal: 1, strength equal bilaterally - Neurologic Neurologic: moves all extremities - Psychiatric Psychiatric: memory intact, appropriate mood/affect, intact judgment & insight - Labs CBC & Chem 7: 05/16/17 04:05 05/16/17 04:05 Labs: Abnormal lab results 05/17/17 Range/Units 08:02 POC Glucose 164 H (70-105) - Imaging and cardiology CT Scan - head: report reviewed CT scan - pelvis: report reviewed MRI - abdomen: report reviewed Venous US: report reviewed
[2017-05-17] MEDS: NORVASC PO SCH (22:23)
[2017-05-18 05:29] LABS: Basophils % (Auto) 0.3 % (0.0-1.8); Eosinophils # (Auto) 0.2 K/mm3 (0.0-0.4); Eosinophils % (Auto) 3.4 % (0.0-4.3); Hematocrit 42.5 % (35.5-45.6); Hemoglobin 14.6 gm/dl (11.8-15.2); Lymphocytes % (Auto) 46.6 % (13.4-35.0); Mean Corpuscular HGB Conc 35 % (32-34); Mean Corpuscular Hemoglobin 31 pg (28-32); Mean Corpuscular Volume 91 fl (84-94); Monocytes # (Auto) 0.4 K/mm3 (0.0-0.8); Platelet Count 174 K/mm3 (140-440); Red Blood Count 4.69 M/mm3 (3.65-5.03)
[2017-05-18 05:39] LABS: Alanine Aminotransferase 21 units/L (7-56); Albumin 4.1 g/dL (3.9-5); BUN/Creatinine Ratio 12; Blood Urea Nitrogen 12 mg/dL (9-20); Calcium 9.2 mg/dL (8.4-10.2); Hemolysis Index 4
[2017-05-18 05:55] LABS: INR 0.91 (0.87-1.13)
[2017-05-18] MEDS: PLAVIX PO SCH (10:12)
[2017-05-18] MEDS: LOPRESSOR PO SCH (10:12)
[2017-05-18] MEDS: HABITROL TD SCH (10:12)
[2017-05-18] MEDS: NORVASC PO SCH (10:13)
[2017-05-18] MEDS: LOVENOX SUB-Q SCH (10:13)
[2017-05-18] MEDS: COZAAR PO SCH (10:13)
[2017-05-18 13:09] VITALS: BP 161/102
--- NOTE | 2017-05-18 13:21 | Discharge Summary ---
Providers - Providers Date of Admission: 05/15/17 21:02 Attending physician: CATRACHO TAVERA MD 05/15/17 21:02 Consult to Physician [CONS] Routine Consulting Provider: GREGORY VERMA Reason For Exam: CVA Place consult to:: Cora Notified:: yes Phone number called:: [phone] If yes, spoke with:: kandace Time called:: 15:10 05/15/17 21:12 Occupational Therapy Evaluate and Treat [CONS] Routine Comment: Reason For Exam: Neuro deficits Physical Therapy Evaluation and Treat [CONS] Routine Comment: Reason For Exam: Neuro deficits Primary care physician: WAFER FAB TECHNICIAN Hospitalization Condition: Fair Hospital course: (1) Acute CVA (cerebrovascular accident) Current Visit: Yes Status: Acute Plan to address problem: MRI SHOWED EVIDENCE OF ACUTE EMBOLIC STROKE INVOLVING THE LEFT PARIETAL AREA AND RIGHT CEREBELLUM MRA/CDS/ECHO Neuro consulted PT/OT ASA, plavix and statin (2) HTN (hypertension)optimized Current Visit: Yes Status: Chronic Qualifiers: Hypertension type: essential hypertension Qualified Code(s): I10 - Essential (primary) hypertension Plan to address problem: On [id number] mg po qd continue to monitor (3) Nicotine dependence Current Visit: Yes Status: Chronic Qualifiers: Nicotine product type: cigarettes Plan to address problem: Counselling on cessation Nicoderm patch (4) Cocaine abuse Current Visit: Yes Status: Chronic Plan to address problem: Counselling on cessation Chronic (5) DVT prophylaxis Current Visit: No Status: Acute Plan to address problem: On Lovenox per patient not consistent with bp meds at home. now understands thee importance. and was not take asa. will start with asa on discharge Disposition: DC-01 TO HOME OR SELFCARE Time spent for discharge: 35 mins Core Measure Documentation - Palliative Care Palliative Care/ Comfort Measures: Not Applicable - Core Measures Any of the following diagnoses?: stroke - VTE Discharge Requirements Deep Vein Thrombosis/Pulmonary Embolism Present on Admission: No - Stroke Discharge Requirements Statin for LDL = or >70 mg/dl on DC: Yes Anticoag for atrial fib/atrial flutter: Not Applicable Antithrombotic for ischemic stroke: Yes Exam - Constitutional Vitals: Temp Pulse Resp BP Pulse Ox 97.8 F 58 L 18 161/102 94 05/18/17 12:02 05/18/17 12:02 05/18/17 12:02 05/18/17 12:02 05/18/17 12:02 Plan Activity: advance as tolerated, fall precautions Diet: low cholesterol Special Instructions: record daily weights, record daily BP diary, physical therapy, occupational therapy Follow up with: PRIMARY CARE, [Primary Care Provider] - 3-5 Days GREGORY VERMA MD [Staff Physician] - 7 Days [facility] [Outside] - 7 Days Prescriptions: Pravastatin [Pravachol] 40 mg PO QHS #30 tablet amLODIPine [Norvasc] 5 mg PO QDAY #30 tablet Aspirin [Aspirin TAB] 325 mg PO QDAY #30 tablet Losartan [Cozaar] 100 mg PO QDAY #30 tablet Metoprolol [Lopressor TAB] 25 mg PO BID #60 tablet
== END 2017-05-18 14:32 | disposition home or self-care (01) | DRG 66 ==
LOC: ED 08:27 → 4A 21:02
PROVIDERS: ADMIT Internal Medicine; ATTEND Internal Medicine
DX: I63.9 Cerebral infarction, unspecified (principal); I10 Essential (primary) hypertension; F17.200 Nicotine dependence, unspecified, uncomplicated; F14.10 Cocaine abuse, uncomplicated
CPT/HCPCS: 36415; 70450; 70544; 70551; 80048; 80053; 80061; 80307; 82962; 83036; 84484; 85025; 85610; 85670; 85730; 93005; 93010; 93306; 93880; A9270-GY; J1650

== ENCOUNTER 2017-06-07 15:02 | Emergency (ER) | payer SELFPAY ==
[2017-06-07 15:31] LABS: Basophils % (Auto) 0.4 % (0.0-1.8); Eosinophils # (Auto) 0.4 K/mm3 (0.0-0.4); Eosinophils % (Auto) 4.3 % (0.0-4.3); Hematocrit 39.8 % (35.5-45.6); Hemoglobin 13.6 gm/dl (11.8-15.2); Lymphocytes % (Auto) 31.1 % (13.4-35.0); Mean Corpuscular HGB Conc 34 % (32-34); Mean Corpuscular Hemoglobin 31 pg (28-32); Mean Corpuscular Volume 91 fl (84-94); Monocytes # (Auto) 0.8 K/mm3 (0.0-0.8); Monocytes % (Auto) 7.8 % (0.0-7.3); Platelet Count 178 K/mm3 (140-440); Red Blood Count 4.39 M/mm3 (3.65-5.03); Red Cell Distribution Width 13.6 % (13.2-15.2)
[2017-06-07 15:38] LABS: INR 0.95 (0.87-1.13); Partial Thromboplastin Time 30.3 Sec. (24.2-36.6)
[2017-06-07 15:39] LABS: Thrombin Time 16.5 Sec. (15.1-19.6)
--- NOTE | 2017-06-07 15:42 | Cat Scan Report ---
FINAL REPORT PROCEDURE: CT HEAD/BRAIN WO CON TECHNIQUE: Computerized tomography of the head was performed without contrast material. HISTORY: suspected stroke COMPARISON: No prior studies are available for comparison. FINDINGS: There are metallic clips in the posterior left orbit. No CT evidence of intracranial mass, hemorrhage, acute territorial infarction, or hydrocephalus. There are bilateral basal ganglia chronic appearing lacunar infarcts. Chronic appearing lacunar infarct is seen in the chip. There is patchy bilateral white matter low attenuation, compatible with chronic microvascular ischemic changes. Calvarium is intact. Visualized paranasal sinuses and mastoids are aerated. IMPRESSION: Chronic ischemic changes. No CT evidence of acute abnormality. Correlation with MRI could be obtained to evaluate for acute on chronic ischemia.
[2017-06-07 15:45] LABS: Creatine Kinase MB 1.9 ng/mL (0.0-4.0)
--- NOTE | 2017-06-07 16:09 | Emergency Department Report ---
ED General Adult HPI - General Chief complaint: Altered Mental Status Stated complaint: LEFT ARM PAIN Time Seen by Provider: 06/07/17 15:26 Source: patient Mode of arrival: Ambulatory Limitations: Altered Mental Status - History of Present Illness Initial comments: Patient with a history of previous lacunar CVA chronic right-sided weakness, patient since last night at 8 PM has been having a worsening of left-sided weakness he's had problems raising his left arm since 8:00 last night here for evaluation of weakness since last night. Patient arrives awake alert x 3 following commands protecting his airway no stridor or drooling here for evaluation of possible new l side weakness since last night. does have hx of noncompliance, htn and cocaine abuse in past, takes bb for htn, asa and took today, and statins, also c/o l shouulder pain hurts w/ movement but l upper ext and poss ll e is "weak w/ diff w/ leg and arm " -: hour(s) Location: left, upper extremity Severity scale (0 -10): 4 Consistency: intermittent, other (questionable improving?) Worsens with: none Associated Symptoms: weakness. denies: confusion, chest pain, diaphoresis, fever/chills, headaches, loss of appetite, malaise, nausea/vomiting, rash, seizure, shortness of breath, syncope - Related Data Previous Rx's Medication Instructions Recorded Last Taken Type Aspirin [Aspirin TAB] 325 mg PO QDAY #30 tablet 05/18/17 Unknown Rx Losartan [Cozaar] 100 mg PO QDAY #30 tablet 05/18/17 Unknown Rx Metoprolol [Lopressor TAB] 25 mg PO BID #60 tablet 05/18/17 Unknown Rx Pravastatin [Pravachol] 40 mg PO QHS #30 tablet 05/18/17 Unknown Rx amLODIPine [Norvasc] 5 mg PO QDAY #30 tablet 05/18/17 Unknown Rx Allergies Allergy/AdvReac Type Severity Reaction Status Date / Time No Known Allergies Allergy Verified 05/15/17 08:54 ED Review of Systems ROS: Stated complaint: LEFT ARM PAIN Other details as noted in HPI Comment: All other systems reviewed and negative Constitutional: denies: diaphoresis, fever, malaise Respiratory: denies: cough, orthopnea, shortness of breath, SOB with exertion, SOB at rest, stridor, wheezing Cardiovascular: denies: chest pain, palpitations, dyspnea on exertion, orthopnea , edema, syncope, paroxysmal nocturnal dyspnea Gastrointestinal: denies: abdominal pain, nausea, vomiting, diarrhea, constipation, hematemesis, melena, hematochezia Musculoskeletal: arthralgia, myalgia, other (shoulder pain no swelling no redness or warmth) Neurological: weakness Hematological/Lymphatic: denies: easy bruising ED Past Medical Hx - Past Medical History Hx Hypertension: Yes Hx CVA: Yes (2 weeks ago) - Surgical History Additional Surgical History: UMBILICAL HERNIA REPAIR - Social History Smoking Status: Current Every Day Smoker - Medications Home Medications: Home Medications Medication Instructions Recorded Confirmed Last Taken Type Aspirin [Aspirin TAB] 325 mg PO QDAY #30 tablet 05/18/17 Unknown Rx Losartan [Cozaar] 100 mg PO QDAY #30 tablet 05/18/17 Unknown Rx Metoprolol [Lopressor TAB] 25 mg PO BID #60 tablet 05/18/17 Unknown Rx Pravastatin [Pravachol] 40 mg PO QHS #30 tablet 05/18/17 Unknown Rx amLODIPine [Norvasc] 5 mg PO QDAY #30 tablet 05/18/17 Unknown Rx ED Physical Exam - General Limitations: Altered Mental Status General appearance: alert, anxious - Head Head exam: Present: atraumatic, normocephalic - Eye Eye exam: Present: PERRL, EOMI - ENT ENT exam: Present: normal exam, normal orophraynx - Neck Neck exam: Present: normal inspection, tenderness, meningismus - Respiratory Respiratory exam: Present: normal lung sounds bilaterally. Absent: respiratory distress, wheezes, rales, rhonchi, stridor, chest wall tenderness, accessory muscle use, decreased breath sounds, prolonged expiratory - Cardiovascular Cardiovascular Exam: Present: regular rate, normal rhythm. Absent: rubs, gallop - GI/Abdominal GI/Abdominal exam: Present: soft. Absent: distended, tenderness, guarding, rebound, rigid, mass, pulsatile mass - Extremities Exam Extremities exam: Present: other (tenderness to the left shoulder no swelling pulses equal bilaterally distally and good capillary refill no warmth or erythema) - Neurological Exam Neurological exam: Present: alert, oriented X3, other (all right side weakness left upper extremity 4 over 5 strength left lower extremity 4 over 5 strength patient is uncooperative with exam he does have some local left shoulder tenderness) - Skin Skin exam: Absent: cyanosis, diaphoretic, erythema, urticaria, vesicles, petechiae, pallor, ecchymosis ED Course Vital Signs 06/07/17 06/07/17 06/07/17 15:12 15:41 15:45 Temperature 97.8 F Pulse Rate 68 69 71 Respiratory 18 21 20 Rate Blood Pressure 133/80 Blood Pressure 153/93 [Left] O2 Sat by Pulse 97 99 99 Oximetry 06/07/17 06/07/17 06/07/17 15:51 16:00 16:16 Temperature 98.5 F Pulse Rate 69 67 72 Respiratory 20 21 21 Rate Blood Pressure 135/86 134/87 Blood Pressure 134/85 [Left] O2 Sat by Pulse 99 97 97 Oximetry 06/07/17 06/07/17 16:32 16:46 Temperature Pulse Rate 67 72 Respiratory 17 27 H Rate Blood Pressure 145/88 140/81 Blood Pressure [Left] O2 Sat by Pulse 99 100 Oximetry - Reevaluation(s) Reevaluation #1: 06/07/17 17:19 Patient presented as possible new left-sided weakness he was a code stroke on arrival symptoms worsens [address] was emergently performed noncontrast head CT showed nothing acute he did have evidence of old lacunar infarct. Patient did take his aspirin today we proceeded to complete a stroke workup I did discuss case with Dr. Monahan for neurology. He recommended CTA of head and neck I did reevaluate the patient he does seem to have some left-sided deficits question if they are improving somewhat with his left upper extremity symptoms are masked by a left shoulder pain that he is uncooperative with the exam however no CVA was appreciated on CT at this time with possible improving deficits 06/07/17 17:59 nih stroke:7 ED Medical Decision Making - Lab Data Result diagrams: 06/07/17 15:20 - EKG Data -: EKG Interpreted by Me EKG shows normal: sinus rhythm - EKG Data When compared to previous EKG there are: no significant change, other (no acute ischemic change from previous EKG) Interpretation: no acute changes - Radiology Data Radiology results: report reviewed - Medical Decision Making Patient had CTA of neck and brain, case d/w dr barksdale for admit for new possibly improving l side weakness, pt took asa today, for further eval poss new l side deficit, does have some pain to left shoulder that limits exam and cooperative ness of pt to le side, xray and cxr ordered and pedning Critical care attestation.: If time is entered above; I have spent that time in minutes in the direct care of this critically ill patient, excluding procedure time. ED Disposition Clinical Impression: Left-sided weakness, History of CVA (cerebrovascular accident) Hypertension Qualifiers: Hypertension type: essential hypertension Qualified Code(s): I10 - Essential ( primary) hypertension Disposition: OP ADMIT IP TO THIS HOSP Is pt being admited?: Yes Condition: Stable Instructions: Hypertension (ED) Referrals: PRIMARY CARE, [Primary Care Provider] - 3-5 Days Time of Disposition: 18:04
[2017-06-07] MEDS ORDERED: TYLENOL PO ONE (16:19)
--- NOTE | 2017-06-07 17:31 | Cat Scan Report ---
FINAL REPORT PROCEDURE: CT ANGIO NECK TECHNIQUE: Computerized tomographic angiography of the neck was performed after the IV injection of iodinated nonionic contrast including image processing. The image data was postprocessed using 2-dimensional multiplanar reformatted (MPR) and 3-dimensional (MIP and/or volume rendered) techniques. HISTORY: arm weakness COMPARISON: No prior studies are available for comparison. Note: Assessment of carotid artery stenosis is based on measurement of the distal internal carotid artery diameter as the denominator for stenosis calculations and the [place] Symptomatic Carotid Endarterectomy Trial (NASCET) stenosis criteria . CPT 3100F FINDINGS: Cervical spine degenerative disc changes are present. Aortic arch: Bovine aortic arch is noted. Right carotid artery: There is no focal stenosis of the common or internal carotid arteries. There is minimal atherosclerotic calcification of the bulb. There is medial deviation of the proximal internal carotid artery/tonsillar loop present. Left carotid artery: Mild atherosclerotic calcification at the carotid bulb, with no focal stenosis of the common or internal carotid artery. Vertebral arteries: Codominant. Patent bilaterally. IMPRESSION: There is no focal stenosis identified. Incidental note is made of a medially deviated right internal carotid artery, which may present on exam as a pulsating right pharyngeal mass.
--- NOTE | 2017-06-07 17:34 | Cat Scan Report ---
FINAL REPORT PROCEDURE: CT ANGIO HEAD TECHNIQUE: Computerized tomographic angiography of the head was performed after the IV injection of iodinated nonionic contrast including image processing. The image data was postprocessed using 2-dimensional multiplanar reformatted (MPR) and 3-dimensional (MIP and/or volume rendered) techniques. HISTORY: arm weakness COMPARISON: No prior studies are available for comparison. FINDINGS: Cerebrum: No evidence of hemorrhage, acute ischemia or mass. Cerebellum: No evidence of hemorrhage, acute ischemia or mass. Subarachnoid spaces and ventricles: Normal. There is focal metallic density noted in the posterior left orbit. Intracranial vessels: Carotid siphon: Normal. Anterior cerebral: Normal. Middle cerebral: Normal. Posterior cerebral:Hypoplastic right P1 segment is likely developmental Vertebral arteries including basilar: Normal. Aneurysms: None. Dural sinuses: Normal. IMPRESSION: No branch occlusion or significant stenosis is identified
--- NOTE | 2017-06-07 17:55 | History and Physical Report ---
History of Present Illness Chief complaint: Im weak History of present illness: 62 YO Male with CVA RHP, Cocaine Dependence, Noncompliance presents to ED for evaluation. Pt states that he has experienced Left arm weakness. Pt seen and evaluated in ED and treated IAW stroke protocol. CTA head and neck did not reveal any acute findings. Pt initiated on DAPT. Pt medically optimized, Pt care plan discussed with . Pt discharged home and instructed to f/u pcp 1 wk , and to continue stroke risk factor reduction. Past History Past Medical History: hypertension, stroke Past Surgical History: hernia repair Social history: , lives with family, smoking, IV drug use Family history: hypertension Medications and Allergies Allergies Allergy/AdvReac Type Severity Reaction Status Date / Time No Known Allergies Allergy Verified 05/15/17 08:54 Home Medications Medication Instructions Recorded Confirmed Last Taken Type Aspirin [Aspirin TAB] 325 mg PO QDAY #30 tablet 05/18/17 Unknown Rx Losartan [Cozaar] 100 mg PO QDAY #30 tablet 05/18/17 Unknown Rx Metoprolol [Lopressor TAB] 25 mg PO BID #60 tablet 05/18/17 Unknown Rx Pravastatin [Pravachol] 40 mg PO QHS #30 tablet 05/18/17 Unknown Rx amLODIPine [Norvasc] 5 mg PO QDAY #30 tablet 05/18/17 Unknown Rx Clopidogrel [Plavix] 75 mg PO QDAY #30 tablet 06/07/17 Unknown Rx oxyCODONE /ACETAMINOPHEN [Percocet 1 tab PO Q6HR PRN #15 tablet 06/07/17 Unknown Rx 5/325] Review of Systems Constitutional: no weight loss, no weight gain, no fever, no chills Ears, nose, mouth and throat: no ear pain, no ear discharge, no tinnitis, no decreased hearing, no nose pain, no nasal congestion, no nasal discharge Cardiovascular: no chest pain, no orthopnea, no palpitations, no edema, no syncope, no lightheadedness Respiratory: no cough, no cough with sputum, no excessive sputum, no hemoptysis , no shortness of breath, no dyspnea on exertion Gastrointestinal: no abdominal pain, no nausea, no vomiting, no diarrhea, no constipation, no change in bowel habits, no hematemesis Genitourinary Male: no dysuria, no hematuria, no flank pain, no discharge, no urinary frequency, no urinary hesitancy, no nocturia, no incontinence Rectal: no pain, no incontinence, no bleeding Musculoskeletal: no neck stiffness, no neck pain, no shooting arm pain, no arm numbness/tingling, no low back pain, no shooting leg pain, no leg numbness/ tingling Integumentary: no rash, no pruritis, no redness, no sores, no wounds, no jaundice Neurological: weakness, no head injury, no transient paralysis, no paralysis, no parathesias, no numbness, no tingling, no seizures Psychiatric: no anxiety, no memory loss, no change in sleep habits, no sleep disturbances, no insomnia, no hypersomnia, no change in appetite, no change in libido, no suicidal ideation Endocrine: no cold intolerance, no heat intolerance, no polyphagia, no excessive thirst, no polydipsia, no polyuria, no nocturia, no excessive sweating , no flushing Hematologic/Lymphatic: no easy bruising, no easy bleeding, no lymphadenopathy, no lymphedema Allergic/Immunologic: no urticaria, no allergic rhinitis, no wheezing Exam - Constitutional Vitals: Temp Pulse Resp BP Pulse Ox 98.5 F 72 27 H 140/81 100 06/07/17 15:51 06/07/17 16:46 06/07/17 16:46 06/07/17 16:46 06/07/17 16:46 General appearance: Present: no acute distress, well-nourished - EENT Eyes: Present: PERRL ENT: hearing intact, clear oral mucosa - Neck Neck: Present: supple, normal ROM - Respiratory Respiratory effort: normal Respiratory: bilateral: CTA - Cardiovascular Heart Sounds: Present: S1 & S2. Absent: rub, click - Extremities Extremities: pulses symmetrical, No edema Peripheral Pulses: within normal limits - Abdominal General gastrointestinal: Present: soft, non-tender, non-distended, normal bowel sounds Male genitourinary: Present: normal - Integumentary Integumentary: Present: clear, warm, dry - Musculoskeletal Musculoskeletal: right sided weakness - Psychiatric Psychiatric: appropriate mood/affect, intact judgment & insight - Neurologic Neurologic: CNII-XII intact, moves all extremities Results - Labs CBC & Chem 7: 06/07/17 15:20 Labs: Abnormal lab results 06/07/17 06/07/17 Range/Units 15:20 15:26 [place] % (Auto) 7.8 H (0.0-7.3) % POC Glucose 112 H (70-105) Assessment and Plan - Patient Problems (1) History of CVA (cerebrovascular accident) Status: Acute Plan to address problem: Stroke protocol revealed no acute findings. Pt counseled regarding medication compliance, risk factor reduction, Pt discharged on DAPT. Pt to f/u pcp 1wk, neurology prn.
[2017-06-07 18:18] VITALS: BP 134/84
[2017-06-07 18:26] LABS: Bilirubin,Urine NEG (Negative); Blood,Urine NEG (Negative); Color,Urine Yellow (Yellow); Mucus,Urine FEW /HPF; Protein,Urine <15 mg/dL mg/dL (Negative); WBC,Urine < 1.0 /HPF (0.0-6.0)
[2017-06-07 18:34] LABS: Amphetamine Screen,Urine PRESUMPTIVE NEGATIVE; Benzodiazepines Screen,Urine PRESUMPTIVE NEGATIVE; Cannabinoid Screen,Urine PRESUMPTIVE NEGATIVE; Cocaine Screen,Urine PRESUMPTIVE NEGATIVE; Methadone Screen,Urine PRESUMPTIVE NEGATIVE; Opiate Screen,Urine PRESUMPTIVE NEGATIVE
--- NOTE | 2017-06-07 20:03 | XRay Report ---
FINAL REPORT EXAM: XR CXR CLINICAL INDICATIONS: WEAK FINDINGS: Single frontal view of the chest was acquired. The heart is mildly large. There is no evidence of congestive heart failure there is no consolidative infiltrate. IMPRESSION: MILD CARDIOMEGALY. OTHERWISE, NO ACTIVE DISEASE IN THE CHEST
--- NOTE | 2017-06-07 20:03 | XRay Report ---
FINAL REPORT EXAM: XR LT SHOULDER CLINICAL INDICATIONS: PAIN FINDINGS: AP views of the left shoulder were acquired in internal and external rotation as well as scapular Y view. These images demonstrate no fracture or malalignment of the left shoulder. There is glenohumeral osteoarthritis. IMPRESSION: NO FRACTURE IS SEEN IN THE LEFT SHOULDER
== END 2017-06-07 19:30 | disposition admitted as inpatient to this hospital (09) ==
LOC: ED 15:02
DX: R53.1 Weakness (principal); I10 Essential (primary) hypertension; F17.200 Nicotine dependence, unspecified, uncomplicated; Z86.73 Personal history of transient ischemic attack (TIA), and cerebral infarction without residual deficits; Z79.82 Long term (current) use of aspirin
CPT/HCPCS: 36415; 70450; 70496; 70498; 71045; 73030; 80307; 81001; 82550; 82553; 82962; 84484; 85025; 85610; 85670; 85730; 93005; 93010; 99285; Q9967

== ENCOUNTER 2017-10-29 21:52 | Emergency (ER) | payer SELFPAY ==
[2017-10-29 22:11] VITALS: BP 153/91
--- NOTE | 2017-10-30 00:16 | XRay Report ---
FINAL REPORT PROCEDURE: XR SHOULDER 2+V RT TECHNIQUE: Right shoulder radiographs including AP views in internal and external rotation and abduction. CPT 21087 HISTORY: pain in right shoulder COMPARISON: No prior studies are available for comparison. FINDINGS: Fracture (s) and/or Dislocation(s): None . Joint space(s): Moderate spur formation off the osseous structures. There is slight narrowing of the joint spaces.. Soft tissues: Normal . Bone mineralization: Normal . Foreign bodies: None . IMPRESSION: There is no evidence of an acute fracture or dislocation. There is mild arthritis.
== END 2017-10-29 22:20 | disposition left against medical advice (07) ==
LOC: ED 21:52
DX: M79.601 Pain in right arm (principal); Z53.21 Procedure and treatment not carried out due to patient leaving prior to being seen by health care provider

== ENCOUNTER 2018-10-29 16:39 | Inpatient (IN) | payer MEDICAID ==
[2018-10-29] MEDS ORDERED: NACL 0.9% 500 ML 500 ML IV ONE (16:55)
--- NOTE | 2018-10-29 16:55 | Event Note ---
ED Screening Note Date of service: 10/29/18 Time: 16:50 ED Screening Note: This is a 63 y.o. M. that presents to the ER with a headache since waking this morning. Current smoker and ETOH PMH CVA 2018, HTN, & HLD states he is worse than usual and worried of possible stroke. This initial assessment/diagnostic orders/clinical plan/treatment(s) is/are subject to change based on patients health status, clinical progression and re- assessment by fellow clinical providers in the ED. Further treatment and workup at subsequent clinical providers discretion. Patient/guardian urged not to elope from the ED as their condition may be serious if not clinically assessed and managed. Initial orders include: CT of head and labs
--- NOTE | 2018-10-29 17:09 | Emergency Department Report ---
- General Chief complaint: Headache Stated complaint: HEAD PAIN Time Seen by Provider: 10/29/18 16:58 Source: patient Mode of arrival: Ambulatory Limitations: No Limitations - History of Present Illness Initial comments: Patient is a 63-year-old male transferred for headache, weakness and confusion that started yesterday. Patient's states his last known well time was 9 AM. Yesterday. Patient is currently A&O2. Patient is confused. History per and patient. Patient states headache is severe. states the patient has been increasing weakness. There is why patient came to the hospital today because he is barely able to get in and out of the car. states the patient becoming more confused. states the patient stopped drinking 2 weeks ago. denies chest pain or shortness of breath complaints MD Complaint: generalized weakness -: Sudden Location: generalized Quality: sharp Consistency: constant Improves with: rest Worsens with: movement Associated Symptoms: confusion, headaches, loss of appetite. denies: chest pain, dark stools, diaphoresis, dysuria, easy bruising, fever/chills, nausea/vomiting, myalgias, rash, shortness of breath, syncope - Related Data Previous Rx's Medication Instructions Recorded Last Taken Type Aspirin [Aspirin TAB] 325 mg PO QDAY #30 tablet 05/18/17 Unknown Rx Losartan [Cozaar] 100 mg PO QDAY #30 tablet 05/18/17 Unknown Rx Metoprolol [Lopressor TAB] 25 mg PO BID #60 tablet 05/18/17 Unknown Rx Pravastatin [Pravachol] 40 mg PO QHS #30 tablet 05/18/17 Unknown Rx amLODIPine [Norvasc] 5 mg PO QDAY #30 tablet 05/18/17 Unknown Rx Clopidogrel [Plavix] 75 mg PO QDAY #30 tablet 06/07/17 Unknown Rx oxyCODONE /ACETAMINOPHEN [Percocet 1 tab PO Q6HR PRN #15 tablet 06/07/17 Unknown Rx 5/325] Allergies Allergy/AdvReac Type Severity Reaction Status Date / Time No Known Allergies Allergy Verified 05/15/17 08:54 ED Review of Systems ROS: Stated complaint: HEAD PAIN Other details as noted in HPI Comment: unsure how reliable the patient is as a historian since the pt is confused Constitutional: weakness. denies: chills, fever Eyes: denies: eye pain, eye discharge, vision change ENT: denies: ear pain, throat pain Respiratory: denies: cough, shortness of breath, wheezing Cardiovascular: denies: chest pain, palpitations Endocrine: no symptoms reported Gastrointestinal: denies: abdominal pain, nausea, diarrhea Genitourinary: denies: urgency, dysuria Musculoskeletal: denies: back pain, joint swelling, arthralgia Skin: denies: rash, lesions Neurological: headache, weakness. denies: paresthesias Psychiatric: denies: anxiety, depression Hematological/Lymphatic: denies: easy bleeding, easy bruising ED Past Medical Hx - Past Medical History Previous Medical History?: Yes Hx Hypertension: Yes Hx CVA: Yes (04/2017) - Surgical History Past Surgical History?: Yes Additional Surgical History: UMBILICAL HERNIA REPAIR - Family History Family history: no significant - Social History Smoking Status: Current Every Day Smoker Substance Use Type: Alcohol - Medications Home Medications: Home Medications Medication Instructions Recorded Confirmed Last Taken Type Aspirin [Aspirin TAB] 325 mg PO QDAY #30 tablet 05/18/17 10/29/18 Unknown Rx Losartan [Cozaar] 100 mg PO QDAY #30 tablet 05/18/17 10/29/18 Unknown Rx Metoprolol [Lopressor TAB] 25 mg PO BID #60 tablet 05/18/17 10/29/18 Unknown Rx Pravastatin [Pravachol] 40 mg PO QHS #30 tablet 05/18/17 10/29/18 Unknown Rx amLODIPine [Norvasc] 5 mg PO QDAY #30 tablet 05/18/17 10/29/18 Unknown Rx Clopidogrel [Plavix] 75 mg PO QDAY #30 tablet 06/07/17 10/29/18 Unknown Rx oxyCODONE /ACETAMINOPHEN [Percocet 1 tab PO Q6HR PRN #15 tablet 06/07/17 10/29/18 Unknown Rx 5/325] ED Physical Exam - General Limitations: No Limitations General appearance: alert, in no apparent distress - Head Head exam: Present: atraumatic, normocephalic - Eye Eye exam: Present: normal appearance, PERRL Pupils: Present: normal accommodation - ENT ENT exam: Present: mucous membranes moist - Neck Neck exam: Present: normal inspection, full ROM. Absent: tenderness, meningismus - Respiratory Respiratory exam: Present: normal lung sounds bilaterally. Absent: respiratory distress, wheezes, rales - Cardiovascular Cardiovascular Exam: Present: regular rate, normal rhythm. Absent: systolic murmur, diastolic murmur, rubs, gallop - GI/Abdominal GI/Abdominal exam: Present: soft, normal bowel sounds - Rectal Rectal exam: Present: deferred - Extremities Exam Extremities exam: Present: normal inspection, full ROM, normal capillary refill. Absent: tenderness, calf tenderness - Back Exam Back exam: Present: normal inspection - Neurological Exam Neurological exam: Present: alert, altered (patient is A&O 2) - Psychiatric Psychiatric exam: Present: normal affect, normal mood - Skin Skin exam: Present: warm, dry, intact, normal color. Absent: rash - Assessment Assessment Interval: Baseline - Level of Consciousness 1a. Level of Consciousness: alert/keenly responsive - LOC Questions 1b. LOC Questions: answers 1 question correctly - LOC Command 1c. LOC Commands: performs tasks correctly - Best Gaze 2. Best Gaze: normal - Visual 3. Visual: no visual loss - Facial Palsy 4. Facial Palsy: normal symmetrical movement - Motor Arm 5a. Motor Arm Left: no drift 5b. Motor Arm Right: no drift - Motor Leg 6a. Motor Leg Left: no drift 6b. Motor Leg Right: no drift - Limb Ataxia 7. Limb Ataxia: absent - Sensory 8. Sensory: normal - Best Language 9. Best Language: no aphasia - Dysarthria 10. Dysarthria: mild/moderate dysarthria - Extinction and Inattention 11. Extinction/Inattention: no abnormality - Scoring Total Score: 2 Stroke Severity: Minor Stroke ED Course Vital Signs 10/29/18 10/29/18 10/29/18 16:50 17:21 17:27 Temperature 98.3 F Pulse Rate 102 H 91 H Respiratory 20 14 16 Rate Blood Pressure 151/99 180/130 Blood Pressure [Left] O2 Sat by Pulse 96 Oximetry 10/29/18 10/29/18 10/29/18 17:30 17:34 17:36 Temperature Pulse Rate 91 H 87 78 Respiratory 20 14 16 Rate Blood Pressure 180/130 Blood Pressure 180/130 151/100 [Left] O2 Sat by Pulse 98 99 Oximetry 10/29/18 10/29/18 10/29/18 17:40 17:45 17:50 Temperature Pulse Rate 91 H 88 78 Respiratory 19 18 19 Rate Blood Pressure 151/100 171/111 Blood Pressure 171/111 [Left] O2 Sat by Pulse 99 99 100 Oximetry 10/29/18 10/29/18 10/29/18 18:00 18:01 18:10 Temperature Pulse Rate 88 77 78 Respiratory 14 16 21 Rate Blood Pressure 171/111 162/92 Blood Pressure 162/92 [Left] O2 Sat by Pulse 100 100 100 Oximetry 10/29/18 10/29/18 10/29/18 18:15 18:24 18:30 Temperature Pulse Rate 77 78 75 Respiratory 20 22 19 Rate Blood Pressure 158/88 Blood Pressure 157/94 [Left] O2 Sat by Pulse 100 100 100 Oximetry 10/29/18 10/29/18 10/29/18 18:41 18:51 18:53 Temperature Pulse Rate 70 76 88 Respiratory 19 21 Rate Blood Pressure 158/88 157/92 157/92 Blood Pressure [Left] O2 Sat by Pulse 100 99 Oximetry 10/29/18 10/29/18 10/29/18 19:00 19:10 19:21 Temperature Pulse Rate 77 84 78 Respiratory 25 H 25 H 23 Rate Blood Pressure 162/97 162/97 Blood Pressure [Left] O2 Sat by Pulse Oximetry 10/29/18 10/29/18 10/29/18 19:31 19:41 19:51 Temperature 97.5 F L Pulse Rate 72 70 72 Respiratory 21 22 22 Rate Blood Pressure 162/97 162/97 162/97 Blood Pressure 168/91 [Left] O2 Sat by Pulse 98 99 98 Oximetry 10/29/18 10/29/18 10/29/18 20:01 20:10 20:11 Temperature Pulse Rate 65 68 65 Respiratory 19 19 19 Rate Blood Pressure 168/91 168/91 Blood Pressure 168/91 [Left] O2 Sat by Pulse 98 98 99 Oximetry 10/29/18 10/29/18 10/29/18 20:21 20:31 20:41 Temperature Pulse Rate 69 62 60 Respiratory 19 22 20 Rate Blood Pressure 168/91 168/91 168/91 Blood Pressure [Left] O2 Sat by Pulse 97 99 97 Oximetry - Reevaluation(s) Reevaluation #1: I discussed all results with patient. I discussed plan of care with patient and family. Both agree with plan of care. Patient will be admitted to the hospitalist service. Patient's blood pressure elevated however the patient's blood pressure came down on its own. 10/29/18 18:24 0 Reevaluation #2: Patient is restless and confused. Patient continues to get in and out of the bed. Patient will be placed in soft wrist restraints. Soft restraints reuse instead of using any type of sedative due to not wanting to alter the patient's neurologic exam 10/29/18 19:08 - Consultations Consultation #1: Neurology paged. Neurologist see the patient 10/29/18 17:26 Patient not a candidate for TPA per neurologist. Neurologist recommends admission for further evaluation and treatment. 10/29/18 18:05 Consultation #2: Hospitalist consult for admission. Hospitalist to admit patient. Bridge orders placed 10/29/18 18:27 ED Medical Decision Making - Lab Data Result diagrams: 10/29/18 17:06 10/29/18 17:06 - EKG Data -: EKG Interpreted by Me EKG shows normal: sinus rhythm, axis, intervals, QRS complexes, ST-T waves Rate: normal - Radiology Data Radiology results: report reviewed, image reviewed interpreted by me: No acute findings on chest x-ray. CT head without contrast CLINICAL HISTORY: Cerebrovascular accident FINDINGS: There are multiple foci of decreased attenuation involving the deep cerebral white matter which includes the splenium of the corpus callosum and ganglia capsular regions as well as the right paramedian chip and left cerebellum. The findings are nonspecific though may reflect multiple old infarcts at. The findings appear to correlate with the previous CT of 06/07/2017. There is no clear CT evidence of acute intracranial hemorrhage or significant mass effect. There is mild cerebral atrophy with associated mild prominence of the ventr icular system which appears unchanged at. There is metallic foreign body projected along the poste rior left orbit which is also unchanged at. The visualized paranasal sinuses are clear. All CT scans at this location are performed using the CT dose reduction for ALARA by means of automated exposure control. 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 There is no CT evidence of acute intracranial hemorrhage. The findings were called emergently to the ER at the time the study was being completed per the code stroke protocol. CHEST 1 VIEW INDICATION / CLINICAL INFORMATION: possible Sepsis. COMPARISON: 06/07/2017 FINDINGS: SUPPORT DEVICES: None. HEART / MEDIASTINUM: No significant abnormality. LUNGS / PLEURA: No significant pulmonary or pleural abnormality. No pneumothorax. ADDITIONAL FINDINGS: No significant additional findings. IMPRESSION: 1. No acute findings. - Medical Decision Making She is a 63-year-old male that S emergency room with headache, weakness and confusion. Neurology consulted early in the patient's ER stay. Patient notably confused. Patient's history per patient and . Patient's head CT is negative. Neurology recommendations received an does not recommend TPA but admission or further evaluation treatment. Patient admitted to the hospitalist service. EKG reviewed. Chest x-ray and CT reviewed. Labs essentially unremarkable. - Differential Diagnosis CVA. Weakness. Headache. Encephalopathy. Critical Care Time: Yes Critical care attestation.: If time is entered above; I have spent that time in minutes in the direct care of this critically ill patient, excluding procedure time. Critical Care Time: 35 minutes ED Disposition Clinical Impression: Dysarthria, Weakness, Hypokalemia, Confusion Headache Qualifiers: Headache type: unspecified Headache chronicity pattern: acute headache Intractability: not intractable Qualified Code(s): R51 - Headache Hypertension Qualifiers: Hypertension type: unspecified Qualified Code(s): I10 - Essential (primary) h ypertension Altered mental state Qualifiers: Altered mental status type: unspecified Qualified Code(s): R41.82 - Altered me ntal status, unspecified Disposition: DC-[id number] OP ADMIT IP TO THIS HOSP Is pt being admited?: Yes Does the pt Need Aspirin: No Condition: Critical Time of Disposition: 18:31
[2018-10-29 17:13] LABS: Basophils % (Auto) 0.4 % (0.0-1.8); Eosinophils # (Auto) 0.2 K/mm3 (0.0-0.4); Eosinophils % (Auto) 2.5 % (0.0-4.3); Hemoglobin 13.5 gm/dl (11.8-15.2); Lymphocytes # (Auto) 2.3 K/mm3 (1.2-5.4); Lymphocytes % (Auto) 38.2 % (13.4-35.0); Mean Corpuscular HGB Conc 35 % (32-34); Mean Corpuscular Volume 91 fl (84-94); Monocytes # (Auto) 0.5 K/mm3 (0.0-0.8); Monocytes % (Auto) 7.8 % (0.0-7.3); Platelet Count 239 K/mm3 (140-440); Red Blood Count 4.27 M/mm3 (3.65-5.03); Red Cell Distribution Width 13.5 % (13.2-15.2)
[2018-10-29 17:21] LABS: INR 1.02 (0.87-1.13)
[2018-10-29 17:32] LABS: Alanine Aminotransferase 16 units/L (7-56); BUN/Creatinine Ratio 11; Blood Urea Nitrogen 10 mg/dL (9-20); Calcium 8.8 mg/dL (8.4-10.2); Hemolysis Index 3
--- NOTE | 2018-10-29 17:56 | Emergency Department Report ---
ED General Adult HPI - General Chief complaint: Headache Stated complaint: HEAD PAIN Time Seen by Provider: 10/29/18 16:58 Source: patient Mode of arrival: Ambulatory Limitations: No Limitations - History of Present Illness Initial comments: [facility] Date of Service: 10/29/2018 17:20:09 Impression: Slurred speech worse from baseline and headache Metrics: Last Known Well: 10/28/2018 09:00:00 Start Time: 10/29/2018 17:17:57 Stamp Time: 10/29/2018 17:20:09 Video Start Time: 10/29/2018 17:37:31 Symptoms: headache and generalized weakness and confusion NIHSS Start Assessment Time: 10/29/2018 17:37:36 Patient is not a candidate for tPA. Patient was not deemed candidate for tPA thrombolytics because of Last Well Known above 4.5 hours. Video End Time: 10/29/2018 17:53:54 CT head showed no acute hemorrhage or acute core infarct. CT head was reviewed. Advanced imaging was not obtained as the presentation was not suggestive of Large Vessel Occlusive Disease. ER physician notified of the decision on thrombolytics management. Comments: Would consider a stroke vs metabolic process vs migraine vs seizure. Our recommendations are outlined below. Recommendations: Initiate Aspirin 81 MG Daily Recommended Scan: MRI Head Without Contrast Lipid Panel to Be Obtained, if Not Done in the Last Three Months Therapies: Physical Therapy, Occupational Therapy, Speech Therapy Assessment When Applicable Dysphaghia Screen: Swallow Evaluation, Bedside DVT prophylaxis: SCDs, Pneumatic Compression Disposition: Follow up with Teleneurology Follow up Sign Out: Discussed with Emergency Department Provider History of Present Illness: Patient is a 63 years old Male who presents with symptoms of headache and generalized weakness and confusion 63 yo M with history of stroke who is presenting with headache and confusion. Patient's states that he started to have a headache yesterday at 9:00. He has continued to have headache and confusion so his brought him in. He also has slurred speech that started yesterday as well. Stroke alert called for EMS presentations Examination: 1A: Level of Consciousness - Alert; keenly responsive + 0 1B: Ask Month and Age - Aphasic + 2 1C: Blink Eyes & Squeeze Hands - Performs Both Tasks + 0 2: Test Horizontal Extraocular Movements - Normal + 0 3: Test Visual Conti - No Visual Loss + 0 4: Test Facial Palsy (Use Grimace if Obtunded) - Normal symmetry + 0 5A: Test Left Arm Motor Drift - No Drift for 10 Seconds + 0 5B: Test Right Arm Motor Drift - No Drift for 10 Seconds + 0 6A: Test Left Leg Motor Drift - No Drift for 5 Seconds + 0 6B: Test Right Leg Motor Drift - No Drift for 5 Seconds + 0 7: Test Limb Ataxia (FNF/Heel-Ospina) - No Ataxia + 0 8: Test Sensation - Normal; No sensory loss + 0 9: Test Language/Aphasia - Normal; No aphasia + 0 10: Test Dysarthria - Mild-Moderate Dysarthria: Slurring but can be understood + 1 11: Test Extinction/Inattention - No abnormality + 0 NIHSS Score: 3 Patient was informed the Neurology Consult would happen via TeleHealth consult by way of interactive audio and video telecommunications and consented to receiving care in this manner. Due to the immediate potential for life-threatening deterioration due to underlying acute neurologic illness, I spent 35 minutes providing critical care. This time includes time for face to face visit via telemedicine, review of medical records, imaging studies and discussion of findings with providers, the patient and/or family. Dr Heavenly [facility] Severity scale (0 -10): 6 - Related Data Previous Rx's Medication Instructions Recorded Last Taken Type Aspirin [Aspirin TAB] 325 mg PO QDAY #30 tablet 05/18/17 Unknown Rx Losartan [Cozaar] 100 mg PO QDAY #30 tablet 05/18/17 Unknown Rx Metoprolol [Lopressor TAB] 25 mg PO BID #60 tablet 05/18/17 Unknown Rx Pravastatin [Pravachol] 40 mg PO QHS #30 tablet 05/18/17 Unknown Rx amLODIPine [Norvasc] 5 mg PO QDAY #30 tablet 05/18/17 Unknown Rx Clopidogrel [Plavix] 75 mg PO QDAY #30 tablet 06/07/17 Unknown Rx oxyCODONE /ACETAMINOPHEN [Percocet 1 tab PO Q6HR PRN #15 tablet 06/07/17 Unknown Rx 5/325] Allergies Allergy/AdvReac Type Severity Reaction Status Date / Time No Known Allergies Allergy Verified 05/15/17 08:54 ED Review of Systems ROS: Stated complaint: HEAD PAIN Other details as noted in HPI ED Past Medical Hx - Past Medical History Previous Medical History?: Yes Hx Hypertension: Yes Hx CVA: Yes (04/2017) - Surgical History Past Surgical History?: Yes Additional Surgical History: UMBILICAL HERNIA REPAIR - Social History Smoking Status: Current Every Day Smoker Substance Use Type: Alcohol - Medications Home Medications: Home Medications Medication Instructions Recorded Confirmed Last Taken Type Aspirin [Aspirin TAB] 325 mg PO QDAY #30 tablet 05/18/17 Unknown Rx Losartan [Cozaar] 100 mg PO QDAY #30 tablet 05/18/17 Unknown Rx Metoprolol [Lopressor TAB] 25 mg PO BID #60 tablet 05/18/17 Unknown Rx Pravastatin [Pravachol] 40 mg PO QHS #30 tablet 05/18/17 Unknown Rx amLODIPine [Norvasc] 5 mg PO QDAY #30 tablet 05/18/17 Unknown Rx Clopidogrel [Plavix] 75 mg PO QDAY #30 tablet 06/07/17 Unknown Rx oxyCODONE /ACETAMINOPHEN [Percocet 1 tab PO Q6HR PRN #15 tablet 06/07/17 Unknown Rx 5/325] ED Physical Exam - General Limitations: No Limitations General appearance: alert, in no apparent distress ED Course Vital Signs 10/29/18 10/29/18 10/29/18 16:50 17:27 17:34 Temperature 98.3 F Pulse Rate 102 H 87 Respiratory 20 16 14 Rate Blood Pressure 151/99 Blood Pressure 180/130 [Left] O2 Sat by Pulse 96 98 Oximetry ED Medical Decision Making - Lab Data Result diagrams: 10/29/18 17:06 10/29/18 17:06 Critical care attestation.: If time is entered above; I have spent that time in minutes in the direct care of this critically ill patient, excluding procedure time. ED Disposition Clinical Impression: Dysarthria, Headache Disposition: OP ADMIT IP TO THIS HOSP Is pt being admited?: Yes Condition: Stable Referrals: MARLON PETERS MD [Primary Care Provider] - 3-5 Days
--- NOTE | 2018-10-29 17:57 | Cat Scan Report ---
CT head without contrast CLINICAL HISTORY: Cerebrovascular accident FINDINGS: There are multiple foci of decreased attenuation involving the deep cerebral white matter w hich includes the splenium of the corpus callosum and ganglia capsular regions as well as the right p aramedian chip and left cerebellum. The findings are nonspecific though may reflect multiple old infa rcts at. The findings appear to correlate with the previous CT of 06/07/2017. There is no clear CT luzma dence of acute intracranial hemorrhage or significant mass effect. There is mild cerebral atrophy with associated mild prominence of the ventricular system which appear s unchanged at. There is metallic foreign body projected along the posterior left orbit which is also unchanged at. The visualized paranasal sinuses are clear. All CT scans at this location are performe d using the CT dose reduction for ALARA by means of automated exposure control. 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 Th ere is no CT evidence of acute intracranial hemorrhage. The findings were called emergently to the ER at the time the study was being completed per the code stroke protocol. Signer Name: Rowdy Slade MD Signed: 10/29/2018 5:53 PM Workstation Name: [id number]
--- NOTE | 2018-10-29 17:59 | XRay Report ---
CHEST 1 VIEW INDICATION / CLINICAL INFORMATION: possible Sepsis. COMPARISON: 06/07/2017 FINDINGS: SUPPORT DEVICES: None. HEART / MEDIASTINUM: No significant abnormality. LUNGS / PLEURA: No significant pulmonary or pleural abnormality. No pneumothorax. ADDITIONAL FINDINGS: No significant additional findings. IMPRESSION: 1. No acute findings. Signer Name: Ashish Garcia MD Signed: 10/29/2018 5:54 PM Workstation Name: [id number]
[2018-10-29] MEDS ORDERED: APRESOLINE IV ONE (18:23)
[2018-10-29 20:05] LABS: Bilirubin,Urine NEG (Negative); Blood,Urine NEG (Negative); Color,Urine Yellow (Yellow); Mucus,Urine FEW /HPF; WBC,Urine < 1.0 /HPF (0.0-6.0)
[2018-10-29] MEDS ORDERED: TYLENOL PO PRN (20:32)
[2018-10-29] MEDS ORDERED: ZOFRAN IV PRN (20:32)
[2018-10-29] MEDS ORDERED: MILK OF MAGNESIA PO PRN (20:32)
[2018-10-29] MEDS ORDERED: REGLAN PO PRN (20:32)
[2018-10-29] MEDS ORDERED: PERCOCET 5/325 PO PRN (20:32)
[2018-10-29] MEDS ORDERED: SODIUM CHLORIDE FLUSH SYRINGE 10 ML IV PRN (20:32)
[2018-10-29] MEDS ORDERED: K-DUR PO ONE (20:38)
[2018-10-29] MEDS ORDERED: APRESOLINE IV PRN (20:42)
--- NOTE | 2018-10-29 20:43 | History and Physical Report ---
History of Present Illness Date of examination: 10/29/18 Date of admission: 10/29/18 18:29 Chief complaint: Confusion and severe headache History of present illness: 63-year-old male who was ongoing smoker with history of cocaine abuse, hypertension, CVA (2018), who presents presents to [facility] ED with complaints of altered mental status, slurred speech and generalized weakness. Pt's is present at bedside and has assisted with providing history. According to pt's , pt has become confused and weak over the past day. states that her is so weak that he "was barely able to get in or out of the car". Pt also c/o of severe generalized headache. She is concerned because his weakness in progressing. Pt states that he stopped drinking 2 weeks ago. Past History Past Medical History: hypertension, stroke (2018) Past Surgical History: hernia repair (umbilical) Social history: , smoking (current every day smoker), other (hx cocaine abuse, alcohol abuse (according to quit 2 weeks ago)) Family history: no significant family history Medications and Allergies Allergies Allergy/AdvReac Type Severity Reaction Status Date / Time No Known Allergies Allergy Verified 05/15/17 08:54 Home Medications Medication Instructions Recorded Confirmed Last Taken Type Aspirin [Aspirin TAB] 325 mg PO QDAY #30 tablet 05/18/17 10/29/18 Unknown Rx Losartan [Cozaar] 100 mg PO QDAY #30 tablet 05/18/17 10/29/18 Unknown Rx Metoprolol [Lopressor TAB] 25 mg PO BID #60 tablet 05/18/17 10/29/18 Unknown Rx Pravastatin [Pravachol] 40 mg PO QHS #30 tablet 05/18/17 10/29/18 Unknown Rx amLODIPine [Norvasc] 5 mg PO QDAY #30 tablet 05/18/17 10/29/18 Unknown Rx Clopidogrel [Plavix] 75 mg PO QDAY #30 tablet 06/07/17 10/29/18 Unknown Rx oxyCODONE /ACETAMINOPHEN [Percocet 1 tab PO Q6HR PRN #15 tablet 06/07/17 10/29/18 Unknown Rx 5/325] Review of Systems All systems: negative (reviewed" unremarkable complaints except as noted below) Constitutional: poor appetite Neurological: headaches, change in mentation (confused) Exam - Physical Exam Narrative exam: Physical exam General appearance: Present: No acute distress, alert and oriented x2, older adult male - EENT Eyes: Present: PERRL, EOM intact ENT: hearing intact, normal dentition - Neck Neck: Present: supple, normal ROM - Respiratory Respiratory effort: Non-labored Respiratory: bilateral: CTA bilaterally - Cardiovascular Heart rate: 81(bpm) Rhythm: Sinus rhythm Heart Sounds: Present: S1 & S2. Absent: rub, click - Extremities Extremities: no ischemia, pulses intact, 5/5 strength in extremities x4 - Peripheral Assessment Peripheral Pulses: within normal limits - Abdominal General gastrointestinal: soft, non-tender, normal bowel sounds - Integumentary Integumentary: Present: warm, dry - Musculoskeletal Musculoskeletal: Able to move all extremities -Neurological Neurological: CN II-XII grossly intact - Psychiatric Psychiatric: cooperative - Constitutional Vitals: Temp Pulse Resp BP Pulse Ox 97.5 F L 68 19 168/91 98 10/29/18 19:41 10/29/18 20:10 10/29/18 20:10 10/29/18 20:10 10/29/18 20:10 Results - Labs CBC & Chem 7: 10/29/18 17:06 10/29/18 17:06 Labs: Laboratory Last Values WBC 6.1 K/mm3 (4.5-11.0) 10/29/18 17:06 RBC 4.27 M/mm3 (3.65-5.03) 10/29/18 17:06 Hgb 13.5 gm/dl (11.8-15.2) 10/29/18 17:06 Hct 39.0 % (35.5-45.6) 10/29/18 17:06 MCV 91 fl (84-94) 10/29/18 17:06 MCH 32 pg (28-32) 10/29/18 17:06 MCHC 35 % (32-34) H 10/29/18 17:06 RDW 13.5 % (13.2-15.2) 10/29/18 17:06 Plt Count 239 K/mm3 (140-440) 10/29/18 17:06 Lymph % (Auto) 38.2 % (13.4-35.0) H 10/29/18 17:06 [place] % (Auto) 7.8 % (0.0-7.3) H 10/29/18 17:06 Eos % (Auto) 2.5 % (0.0-4.3) 10/29/18 17:06 Baso % (Auto) 0.4 % (0.0-1.8) 10/29/18 17:06 Lymph # 2.3 K/mm3 (1.2-5.4) 10/29/18 17:06 [place] # 0.5 K/mm3 (0.0-0.8) 10/29/18 17:06 Eos # 0.2 K/mm3 (0.0-0.4) 10/29/18 17:06 Baso # 0.0 K/mm3 (0.0-0.1) 10/29/18 17:06 Seg Neutrophils % 51.1 % (40.0-70.0) 10/29/18 17:06 Seg Neutrophils # 3.1 K/mm3 (1.8-7.7) 10/29/18 17:06 PT 13.1 Sec. (12.2-14.9) 10/29/18 17:06 INR 1.02 (0.87-1.13) 10/29/18 17:06 VBG pH 7.429 (7.320-7.420) H 10/29/18 17:28 Sodium 140 mmol/L (137-145) 10/29/18 17:06 Potassium 3.3 mmol/L (3.6-5.0) L 10/29/18 17:06 Chloride 103.8 mmol/L (98-107) 10/29/18 17:06 Carbon Dioxide 26 mmol/L (22-30) 10/29/18 17:06 14 mmol/L 10/29/18 17:06 BUN 10 mg/dL (9-20) 10/29/18 17:06 0.9 mg/dL (0.8-1.5) 10/29/18 17:06 Estimated GFR > 60 ml/min 10/29/18 17:06 11 % 10/29/18 17:06 Glucose 147 mg/dL (75-100) H 10/29/18 17:06 Lactic Acid 1.50 mmol/L (0.7-2.0) 10/29/18 19:41 Calcium 8.8 mg/dL (8.4-10.2) 10/29/18 17:06 0.40 mg/dL (0.1-1.2) 10/29/18 17:06 AST 15 units/L (5-40) 10/29/18 17:06 ALT 16 units/L (7-56) 10/29/18 17:06 70 units/L (35-129) 10/29/18 17:06 7.8 g/dL (6.3-8.2) 10/29/18 17:06 4.0 g/dL (3.9-5) 10/29/18 17:06 1.1 % 10/29/18 17:06 Yellow (Yellow) 10/29/18 19:55 Clear (Clear) 10/29/18 19:55 5.0 (5.0-7.0) 10/29/18 19:55 Ur Specific [place] 1.026 (1.003-1.030) 10/29/18 19:55 30 mg/dl mg/dL (Negative) 10/29/18 19:55 50 mg/dL (Negative) 10/29/18 19:55 Neg mg/dL (Negative) 10/29/18 19:55 Neg (Negative) 10/29/18 19:55 Neg (Negative) 10/29/18 19:55 Neg (Negative) 10/29/18 19:55 4.0 mg/dL (<2.0) 10/29/18 19:55 Ur Leukocyte Esterase Neg (Negative) 10/29/18 19:55 < 1.0 /HPF (0.0-6.0) 10/29/18 19:55 1.0 /HPF (0.0-6.0) 10/29/18 19:55 U Epithel Cells (Auto) < 1.0 /HPF (0-13.0) 10/29/18 19:55 Few /HPF 10/29/18 19:55 - Imaging and Cardiology EKG: image reviewed (81 bpm, SR) Chest x-ray: report reviewed (LUNGS / PLEURA: No significant pulmonary or pleural abnormality. No pneumothorax. ), image reviewed Imaging and Cardiology: CT Head: Findings: There are multiple foci of decreased attenuation involving the deep cerebral white matter which includes the splenium of the corpus callosum and ganglia capsular regions as well as the right paramedian chip and left cerebellum. The findings are nonspecific though may reflect multiple old infarcts at. The findings appear to correlate with the previous CT of 06/07/2017. There is no clear CT evidence of acute intracranial hemorrhage or significant mass effect. There is mild cerebral atrophy with associated mild prominence of the ventricular system which appears unchanged at. There is metallic foreign body projected along the posterior left orbit which is also unchanged at. The visualized paranasal sinuses are clear. All CT scans at this location are performed using the CT dose reduction for ALARA by means of automated exposure control. Impression: There is continued extensive microvascular angiopathy and multiple old infarcts as detailed above. There is no CT evidence of acute intracranial hemorrhage. Assessment and Plan Assessment and plan: 63-year-old male who was ongoing smoker with history of cocaine abuse, h ypertension, CVA (2018), who presents presents to [facility] ED with complaints of altered mental status, slurred speech and generalized weakness. TIA R/O CVA -History of CVA (2018) - complained of slurred speech and increased weakness -CT head showed continued extensive microvascular angiopathy and multiple old infarcts; no CT evidence of acute intracranial hemorrhage -Initiate stroke protocol -Contuinue ASA and statin -MRI Head pending -Neurology consulted HTN urgency -Initial BP of 180/130 -Received IV antihypertensives -Continue to monitor BP -Resume antihypertensive meds to optimize BP -IV hydralazine when necessary Hypokalemia -Potassium on admission 3.3 -Received potassium replete -Continue to monitor electrolytes -Replete as needed Acute encephalopathy -No current signs of infection -Urinalysis negative -Blood cultures pending -Neuro checks Dysphagia -Today's Swallow screen complained of feeling like food stuck in throat -NPO -Speech eval pending Tobacco abuse -Current every day smoker -Counseled for cessation -Nicotine patch as needed EtOH abuse -??Stopped drinking 2 weeks ago -Initiate CIWA protocol History of cocaine abuse -UDS pending DVT PPX -on Plavix Advance Directives: No VTE prophylaxis?: Chemical Plan of care discussed with patient/family: Yes
[2018-10-29] MEDS ORDERED: ATIVAN IV PRN (21:01)
[2018-10-29] MEDS: PRAVACHOL PO SCH (21:15)
[2018-10-29] MEDS: LOPRESSOR PO SCH (21:15)
[2018-10-29] MEDS: COLACE PO SCH (21:17)
[2018-10-29 22:16] LABS: Amphetamine Screen,Urine PRESUMPTIVE NEGATIVE; Benzodiazepines Screen,Urine PRESUMPTIVE NEGATIVE; Cannabinoid Screen,Urine PRESUMPTIVE NEGATIVE; Cocaine Screen,Urine PRESUMPTIVE NEGATIVE; Methadone Screen,Urine PRESUMPTIVE NEGATIVE; Opiate Screen,Urine PRESUMPTIVE NEGATIVE
[2018-10-30 05:23] LABS: Basophils % (Auto) 0.3 % (0.0-1.8); Eosinophils # (Auto) 0.2 K/mm3 (0.0-0.4); Eosinophils % (Auto) 2.8 % (0.0-4.3); Hematocrit 37.6 % (35.5-45.6); Hemoglobin 12.9 gm/dl (11.8-15.2); Lymphocytes # (Auto) 2.9 K/mm3 (1.2-5.4); Lymphocytes % (Auto) 45.8 % (13.4-35.0); Mean Corpuscular HGB Conc 34 % (32-34); Mean Corpuscular Volume 91 fl (84-94); Monocytes # (Auto) 0.5 K/mm3 (0.0-0.8); Monocytes % (Auto) 7.2 % (0.0-7.3); Platelet Count 227 K/mm3 (140-440); Red Blood Count 4.12 M/mm3 (3.65-5.03); Red Cell Distribution Width 13.7 % (13.2-15.2)
[2018-10-30 05:51] LABS: BUN/Creatinine Ratio 13; Blood Urea Nitrogen 10 mg/dL (9-20); Calcium 8.8 mg/dL (8.4-10.2); Chol/HDL Ratio 5.29 %; HDL Cholesterol 27 mg/dL (40-59); Hemolysis Index 1; LDL Cholesterol,Direct 103 mg/dL (50-130)
[2018-10-30] MEDS: ASPIRIN PO SCH (10:05)
[2018-10-30] MEDS: NORVASC PO SCH (10:06)
[2018-10-30] MEDS: PLAVIX PO SCH (10:06)
[2018-10-30] MEDS: COZAAR PO SCH (10:06)
[2018-10-30] MEDS: COLACE PO SCH ×2 (10:06→22:21)
[2018-10-30] MEDS: LOPRESSOR PO SCH (10:07)
[2018-10-30] MEDS: HABITROL TD SCH (10:07)
--- NOTE | 2018-10-30 12:49 | Progress Note ---
Assessment and Plan Assessment and plan: 63-year-old male who was ongoing smoker with history of cocaine abuse, hypertension, CVA (2018), who presents presents to [facility] ED with complaints of altered mental status, headaches, slurred speech and generalized weakness. Dysarthria -Probably 2/2 TIA, rule out acute stroke -On stroke protocol -Continue ASA, plavis and statin -CT head showed continued extensive microvascular angiopathy and multiple old infarcts; no CT evidence of acute intracranial hemorrhage -MRI Head pending -Neurology consulted HTN urgency -Blood pressure improved -Continue home Cozaar and Amlodipine, adjust as needed Hypokalemia -Resolved status post repletion -Will check magnesium level Acute metabolic encephalopathy -Improved Hyperglycemia -We'll check hba1c level Tobacco abuse -Counseled on cessation -Nicotine patch as needed EtOH abuse -??Stopped drinking 2 weeks ago -Continue CIWA protocol History of cocaine abuse -Urine drug screen negative DVT prophylaxis with SCD Disposition: For discharge if MRI brain is negative and after neurology and PT/OT evaluation History Interval history: Patient seen today. He stated that he feels fine, he has no new complaints. He denies headaches, nausea, vomiting or dizziness. Slurred speech has resolved. Hospitalist Physical - Constitutional Vitals: Temp Pulse Resp BP Pulse Ox 98.3 F 57 L 16 148/88 95 10/30/18 11:34 10/30/18 11:34 10/30/18 11:34 10/30/18 11:34 10/30/18 11:34 General appearance: Present: no acute distress - EENT Eyes: Present: PERRL, EOM intact ENT: hearing intact, clear oral mucosa - Neck Neck: Present: supple, normal ROM - Respiratory Respiratory effort: normal Respiratory: bilateral: CTA - Cardiovascular Rhythm: regular Heart Sounds: Present: S1 & S2 - Extremities Extremities: No edema - Abdominal General gastrointestinal: soft, non-tender, normal bowel sounds - Integumentary Integumentary: Present: clear, warm, dry - Psychiatric Psychiatric: appropriate mood/affect - Neurologic Neurologic: moves all extremities Results - Labs CBC & Chem 7: 10/30/18 04:10 10/30/18 04:10 Labs: Laboratory Last Values WBC 6.4 K/mm3 (4.5-11.0) 10/30/18 04:10 RBC 4.12 M/mm3 (3.65-5.03) 10/30/18 04:10 Hgb 12.9 gm/dl (11.8-15.2) 10/30/18 04:10 Hct 37.6 % (35.5-45.6) 10/30/18 04:10 MCV 91 fl (84-94) 10/30/18 04:10 MCH 31 pg (28-32) 10/30/18 04:10 MCHC 34 % (32-34) 10/30/18 04:10 RDW 13.7 % (13.2-15.2) 10/30/18 04:10 Plt Count 227 K/mm3 (140-440) 10/30/18 04:10 Lymph % (Auto) 45.8 % (13.4-35.0) H 10/30/18 04:10 [place] % (Auto) 7.2 % (0.0-7.3) 10/30/18 04:10 Eos % (Auto) 2.8 % (0.0-4.3) 10/30/18 04:10 Baso % (Auto) 0.3 % (0.0-1.8) 10/30/18 04:10 Lymph # 2.9 K/mm3 (1.2-5.4) 10/30/18 04:10 [place] # 0.5 K/mm3 (0.0-0.8) 10/30/18 04:10 Eos # 0.2 K/mm3 (0.0-0.4) 10/30/18 04:10 Baso # 0.0 K/mm3 (0.0-0.1) 10/30/18 04:10 Seg Neutrophils % 43.9 % (40.0-70.0) 10/30/18 04:10 Seg Neutrophils # 2.8 K/mm3 (1.8-7.7) 10/30/18 04:10 PT 13.1 Sec. (12.2-14.9) 10/29/18 17:06 INR 1.02 (0.87-1.13) 10/29/18 17:06 VBG pH 7.429 (7.320-7.420) H 10/29/18 17:28 Sodium 141 mmol/L (137-145) 10/30/18 04:10 Potassium 4.0 mmol/L (3.6-5.0) D 10/30/18 04:10 Chloride 103.7 mmol/L (98-107) 10/30/18 04:10 Carbon Dioxide 28 mmol/L (22-30) 10/30/18 04:10 13 mmol/L 10/30/18 04:10 BUN 10 mg/dL (9-20) 10/30/18 04:10 0.8 mg/dL (0.8-1.5) 10/30/18 04:10 Estimated GFR > 60 ml/min 10/30/18 04:10 13 % 10/30/18 04:10 Glucose 126 mg/dL (75-100) H 10/30/18 04:10 Lactic Acid 1.50 mmol/L (0.7-2.0) 10/29/18 19:41 Calcium 8.8 mg/dL (8.4-10.2) 10/30/18 04:10 0.40 mg/dL (0.1-1.2) 10/29/18 17:06 AST 15 units/L (5-40) 10/29/18 17:06 ALT 16 units/L (7-56) 10/29/18 17:06 70 units/L (35-129) 10/29/18 17:06 7.8 g/dL (6.3-8.2) 10/29/18 17:06 4.0 g/dL (3.9-5) 10/29/18 17:06 1.1 % 10/29/18 17:06 Triglycerides 143 mg/dL (2-149) 10/30/18 04:10 Cholesterol 143 mg/dL (50-199) 10/30/18 04:10 103 mg/dL (50-130) 10/30/18 04:10 27 mg/dL (40-59) L 10/30/18 04:10 5.29 % 10/30/18 04:10 Yellow (Yellow) 10/29/18 19:55 Clear (Clear) 10/29/18 19:55 5.0 (5.0-7.0) 10/29/18 19:55 Ur Specific [place] 1.026 (1.003-1.030) 10/29/18 19:55 30 mg/dl mg/dL (Negative) 10/29/18 19:55 50 mg/dL (Negative) 10/29/18 19:55 Neg mg/dL (Negative) 10/29/18 19:55 Neg (Negative) 10/29/18 19:55 Neg (Negative) 10/29/18 19:55 Neg (Negative) 10/29/18 19:55 4.0 mg/dL (<2.0) 10/29/18 19:55 Ur Leukocyte Esterase Neg (Negative) 10/29/18 19:55 < 1.0 /HPF (0.0-6.0) 10/29/18 19:55 1.0 /HPF (0.0-6.0) 10/29/18 19:55 U Epithel Cells (Auto) < 1.0 /HPF (0-13.0) 10/29/18 19:55 Few /HPF 10/29/18 19:55 Presumptive negative 10/29/18 20:03 Presumptive negative 10/29/18 20:03 Ur Barbiturates Screen Presumptive negative 10/29/18 20:03 Ur Phencyclidine Scrn Presumptive negative 10/29/18 20:03 Ur Amphetamines Screen Presumptive negative 10/29/18 20:03 U Benzodiazepines Scrn Presumptive negative 10/29/18 20:03 Presumptive negative 10/29/18 20:03 U Marijuana (THC) Screen Presumptive negative 10/29/18 20:03 Disclamer 10/29/18 20:03 Active Medications - Current Medications Current Medications: Generic Name Dose Route Start Last Admin Trade Name Freq PRN Reason Stop Dose Admin Acetaminophen 650 mg 10/29/18 20:32 Tylenol PO Q4H PRN Pain, Mild (1-3) Amlodipine Besylate 5 mg 10/30/18 10:00 10/30/18 10:06 Norvasc PO 5 mg QDAY JOHN Administration Aspirin 325 mg 10/30/18 10:00 10/30/18 10:05 Aspirin PO 325 mg QDAY JOHN Administration Clopidogrel Bisulfate 75 mg 10/30/18 10:00 10/30/18 10:06 Plavix PO 75 mg QDAY JOHN Administration Docusate Sodium 100 mg 10/29/18 22:00 10/30/18 10:06 Colace PO 100 mg BID JOHN Administration Hydralazine HCl 10 mg 10/29/18 20:42 Apresoline IV Q4HR PRN Blood Pressure Lorazepam 2 mg 10/29/18 21:01 Ativan IV Q1H PRN CIWA-Ar 8-15 Losartan Potassium 100 mg 10/30/18 10:00 10/30/18 10:06 Cozaar PO 100 mg QDAY JOHN Administration Magnesium Hydroxide 30 ml 10/29/18 20:32 Milk Of Magnesia PO Q4H PRN Constipation Metoclopramide HCl 10 mg 10/29/18 20:32 Reglan PO Q6H PRN Nausea And Vomiting Metoprolol Tartrate 25 mg 10/29/18 22:00 10/30/18 10:07 Lopressor PO 25 mg BID JOHN Administration Nicotine 14 mg 10/30/18 10:00 10/30/18 10:07 Habitrol TD 14 mg QDAY JOHN Administration Ondansetron HCl 4 mg 10/29/18 20:32 Zofran IV Q8H PRN Nausea And Vomiting Oxycodone/Acetaminophen 1 tab 10/29/18 20:32 Percocet 5/325 PO Q6H PRN Pain, Moderate (4-6) Pravastatin Sodium 40 mg 10/29/18 22:00 10/29/18 21:15 Pravachol PO 40 mg QHS JOHN Administration Sodium Chloride 10 ml 10/29/18 20:32 Sodium Chloride Flush Syringe 10 Ml IV PRN PRN LINE FLUSH
--- NOTE | 2018-10-30 13:13 | Progress Note ---
Subjective Date of service: 10/30/18 Interval history: see my note there is extensive evidence of multiplee strokes that are bilateral and in brainstem spoke to and made her aware of the situation await MRI Objective - Vital Sign Vital Signs - 12hr 10/30/18 10/30/18 10/30/18 01:20 05:18 05:19 Temperature 97.9 F Pulse Rate 56 L Pulse Rate [ Apical] Respiratory 19 20 Rate Blood Pressure 197/101 169/96 O2 Sat by Pulse 98 92 Oximetry 10/30/18 10/30/18 10/30/18 08:01 10:00 10:03 Temperature 97.7 F Pulse Rate 55 L 62 Pulse Rate [ 62 Apical] Respiratory 16 16 18 Rate Blood Pressure 178/95 168/88 O2 Sat by Pulse 98 98 Oximetry 10/30/18 10/30/18 10/30/18 10:06 10:07 11:34 Temperature 98.3 F Pulse Rate 62 62 57 L Pulse Rate [ Apical] Respiratory 16 Rate Blood Pressure 168/88 168/88 148/88 O2 Sat by Pulse 95 Oximetry - Laboratory Findings CBC and BMP: 10/30/18 04:10 10/30/18 04:10 Abnormal Lab Findings: Abnormal Labs 10/29/18 10/29/18 10/29/18 17:06 17:06 17:28 MCHC 35 H Lymph % (Auto) 38.2 H Saline % (Auto) 7.8 H VBG pH 7.429 H Potassium 3.3 L Glucose 147 H HDL Cholesterol 10/30/18 10/30/18 04:10 04:10 MCHC Lymph % (Auto) 45.8 H Saline % (Auto) VBG pH Potassium Glucose 126 H HDL Cholesterol 27 L
[2018-10-30] MEDS: PRAVACHOL PO SCH (22:22)
--- NOTE | 2018-10-31 02:46 | Consultation ---
HISTORY OF PRESENT ILLNESS: This patient is a 63-year-old black male who has presented to [facility] with a prior history of having a stroke. He had largely recovered from this, but it had periods of being slow and not acting like himself. One day, he was noted by his to be extremely weak and off-center and he subsequently was brought to the Emergency Room with problems of coordination. At this point, I have reviewed his CT of the head that shows a pontine infarct, which is old. He has a very dense metallic spray artifact present in the posterior orbit. I am not sure the basis of this. It looks like it is a retained metal fragment. The hemisphere show an old stroke in the left frontal lobe deep white matter also right internal capsule and the right anterior caudate nucleus region. As well, there is a more acute lacunar stroke present also is within the right deep white matter of the centrum semiovale. Examination does show the patient has scattered weakness throughout, very slow to move. I saw him with physical therapy and he is very apraxic, ataxic on movements, difficulty particularly moving his left side. He is slow to move. Has a visual field cut to the left side.: Cranial nerves are intact. Neck supple. No tremors or asterixis are noted. Motor and sensory examination is otherwise unremarkable. IMPRESSION: Acute stroke, multiple. This patient has a series of several very large strokes bilaterally. I would recommend at this point getting an MRI, physical therapy is seeing him. I am not sure the basis of all of his strokes, although speaking to his he has had history of being on antihypertensive therapy. JOB# [id number] JOSHUA/ALISSON
[2018-10-31 08:21] VITALS: BP 152/99
[2018-10-31] MEDS: PLAVIX PO SCH (09:57)
[2018-10-31] MEDS: ASPIRIN PO SCH (09:57)
[2018-10-31] MEDS: COZAAR PO SCH (09:58)
[2018-10-31] MEDS: NORVASC PO SCH (09:59)
[2018-10-31] MEDS: HABITROL TD SCH (10:01)
[2018-10-31] MEDS: COLACE PO SCH (10:09)
--- NOTE | 2018-10-31 10:40 | Magnetic Resonance Report ---
MRI brain without contrast. Clinical history: Cerebrovascular accident. FINDINGS: On the diffusion imaging, there is a small 4 mm focus of increased attenuation along the po sterior medial left temporal lobe compatible with small acute infarct at. There is a slightly more johnson btle similar sized focus along the medial left occipital lobe also compatible with recent small infar ct. On the FLAIR sequences, there is extensive cerebral white matter disease most consistent with chronic microvascular angiopathy. There are multiple old lacunar infarcts involving the deep cerebral white matter, right thalamus, right chip and left cerebellum.. The diffusion imaging reveals no further luzma dence of acute infarction. There is mild cerebral atrophy with associated mild prominence of the ventricular system. No extra-ax ial fluid collections or significant mass effect is identified at. The findings are also compatible w ith old infarct involving posterior corpus of callosum. The paranasal sinuses and mastoid air cells a re pneumatized. IMPRESSION: There are small foci of acute infarction involving the posterior medial left temporal lobe and medial left occipital lobe as detailed above. There is otherwise extensive microvascular angiopathy and multiple old infarcts. Signer Name: Rowdy Slade MD Signed: 10/31/2018 10:36 AM Workstation Name: [id number]
--- NOTE | 2018-11-01 07:23 | Discharge Summary ---
Providers - Providers Date of Admission: 10/29/18 18:29 Attending physician: ELDA SALINAS MD 10/29/18 Consult to Physician [CONS] Routine Comment: Consulting Provider: GREGORY VERMA Physician Instructions: Reason For Exam: TIA vs CVA in pt with hx CVA (2018) 10/29/18 17:49 Speech Therapy Evaluation and Treat [CONS] Urgent Reason For Exam: stroke protocol 10/29/18 20:32 Occupational Therapy Evaluate and Treat [CONS] Routine Comment: Reason For Exam: Neuro deficits Physical Therapy Evaluation and Treat [CONS] Routine Comment: Reason For Exam: Neuro deficits [facility] MD Hospitalization Condition: Critical Disposition: DC-07 LEFT AGAINST MED ADVICE Core Measure Documentation - Palliative Care Palliative Care/ Comfort Measures: Not Applicable Exam - Constitutional Vitals: Temp Pulse Resp BP Pulse Ox 99.5 F 74 16 152/99 94 10/31/18 08:16 10/31/18 10:00 10/31/18 10:00 10/31/18 09:59 10/31/18 10:00 Plan Follow up with: MARLON PETERS MD [Primary Care Provider] - 3-5 Days
== END 2018-10-31 11:59 | disposition left against medical advice (07) | DRG 64 ==
LOC: ED 16:39 → 4A 18:29
PROVIDERS: ADMIT Internal Medicine; ATTEND Internal Medicine
DX: I63.9 Cerebral infarction, unspecified (principal); G93.41 Metabolic encephalopathy; R29.703 NIHSS score 3; E87.6 Hypokalemia; F14.10 Cocaine abuse, uncomplicated; F10.10 Alcohol abuse, uncomplicated; Y90.9 Presence of alcohol in blood, level not specified; R13.10 Dysphagia, unspecified; I16.0 Hypertensive urgency; F17.210 Nicotine dependence, cigarettes, uncomplicated; R47.1 Dysarthria and anarthria; I10 Essential (primary) hypertension; E78.5 Hyperlipidemia, unspecified; Z79.82 Long term (current) use of aspirin; Z79.899 Other long term (current) drug therapy; Z86.73 Personal history of transient ischemic attack (TIA), and cerebral infarction without residual deficits; Z71.6 Tobacco abuse counseling; Z53.21 Procedure and treatment not carried out due to patient leaving prior to being seen by health care provider
CPT/HCPCS: 36415; 70450; 70551; 71045; 80048; 80053; 80061; 80307; 81001; 82140; 82805; 82962; 83036; 83735; 85025; 85610; 87040; 87086; 93005; 93010; 99406; G0378; A9270-GY